=== PATIENT | male | born 1960 | race Caucasian/White ===

== ENCOUNTER → 2017-05-09 | Emergency (ER) | payer OTHER ==
[2017-05-09 12:46] VITALS: BP 150/88; PULSE 96; TEMP 98.1; BMI 25.2
== END | disposition left against medical advice (07) ==
LOC: JER 12:42
DX: Z53.21 Procedure and treatment not carried out due to patient leaving prior to being seen by health care provider (principal)
CPT/HCPCS: 99281-25

== ENCOUNTER 2019-03-03 09:16 | Inpatient (IN) | payer OTHER ==
--- NOTE | 2019-03-03 09:35 | HP ---
CIWA Score Nausea/Vomitin-Mild Nausea/No Vomiting Muscle Tremors: 6 Anxiety: 1-Mildly Anxious Agitation: 1-Slight > Activity Paroxysmal Sweats: 4-Forehead w/Sweat Beads Orientation: 0-Oriented Tacttile Disturbances: 1-Very Mild Itch/Numbness Auditory Disturbances: 0-None Visual Disturbances: 0-None Headache: 0-None Present CIWA-Ar Total Score: 14 - Admission Criteria OASAS Guidelines: Admission for Medically Managed Detox: Requires at least one of the followin. CIWA greater than 12 2. Seizures within the past 24 hours 3. Delirium tremens within the past 24 hours 4. Hallucinations within the past 24 hours 5. Acute intervention needed for co occurring medical disorder 6. Acute intervention needed for co occurring psychiatric disorder 7. Severe withdrawal that cannot be handled at a lower level of care (continued vomiting, continued diarrhea, abnormal vital signs) requiring intravenous medication and/or fluids 8. Admitting History and Physical - Admission Chief Complaint: "I am trying to detox and get control of my life again. I tried on my own and couldn't do it." History of Present Illness: 58 year old male with alcohol dependence with withdrawals and cocaine use disorder. He remained abstinent for many years but relapsed 1.5 years ago after divorce. He is drinking 12 beers daily and sometimes vodka. Last drank yesterday beers only. He admits to blackouts and last one was 6 months ago. 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 He has co-morbid disorders including HTN, HLD, and COPD. He smokes 7-8 ciggarettes per day, smoked today. Psurg: Spinal surgery cervical multiple screens from accident Shx: Denies other substances of abuse Patient is domiciled in [place], living with mother. Mother is supportive and wants him to detox and become abstinent. 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 75% occlusion left side) Cardiovascular: Yes: Hyperlipdemia Pulmonary: Yes: COPD - Smoking History Smoking history: Current every day smoker Have you smoked in the past 12 months: Yes Aproximately how many cigarettes per day: 10 - Alcohol/Substance Use Hx Alcohol Use: No Admission ROS BHS - HPI Allergies/Adverse Reactions: Allergies Allergy/AdvReac Type Severity Reaction Status Date / Time Penicillins Allergy Verified 03/03/19 09:35 Exam Limitations: No Limitations - Ebola screening Have you traveled outside of the country in the last 21 days: No (N) Have you had contact with anyone from an Ebola affected area: No Have you been sick,other than usual withdrawal symptoms: No Do you have a fever: No - Review of Systems Constitutional: Chills, Diaphoresis EENT: reports: No Symptoms Reported Respiratory: reports: SOB with Exertion Cardiac: reports: No Symptoms Reported GI: reports: No Symptoms Reported : reports: No Symptoms Reported Musculoskeletal: reports: No Symptoms Reported Integumentary: reports: No Symptoms Reported Neuro: reports: No Symptoms reported Endocrine: reports: No Symptoms Reported Hematology: reports: No Symptoms Reported Psychiatric: reports: Judgement Intact, Mood/Affect Appropiate, Orientated x3 Other Systems: Reviewed and Negative Patient History - Patient Medical History Hx Chronic Obstructive Pulmonary Disease (COPD): Yes Hx Hypertension: Yes - Patient Surgical History Past Surgical History: Yes Hx Neurologic Surgery: Yes Hx Cataract Extraction: No Hx Cardiac Surgery: No Hx Lung Surgery: No Hx Breast Surgery: No Hx Breast Biopsy: No Hx Abdominal Surgery: No Hx Appendectomy: No Hx Cholecystectomy: No Hx Genitourinary Surgery: No Hx Section: No Hx Orthopedic Surgery: No Hx Hysterectomy: No Other Surgical History: cervical spinal surgeries with multiple screws Anesthesia Reaction: No - PPD History Previous Implant?: No Documented Results: Positive w/o proof Implanted On Prior [facility] Admission?: No Date: 02/21/95 (inh and rifam 20 years ago) Results: + INH and Rifam - Smoking Cessation Smoking history: Current every day smoker Have you smoked in the past 12 months: Yes Aproximately how many cigarettes per day: 10 Hx Chewing Tobacco Use: No Initiated information on smoking cessation: Yes 'Breaking Loose' booklet given: 03/03/19 - Substances abused Alcohol Substance route: Oral Frequency: Daily Amount used: 20 cans of beers Age of first use: 14 Date of last use: 03/02/19 Crack Substance route: Smoking Frequency: 1-3 times last 30 days Amount used: $10 Age of first use: 55 Date of last use: 02/24/19 Admission Physical Exam BHS - Physical General Appearance: Yes: Mild Distress, Tremorous, Sweating, Anxious HEENTM: Yes: EOMI, Hearing grossly Normal, Normal ENT Inspection, Normocephalic , Normal Voice, MARI, Pharynx Normal, Tm's normal Respiratory: Yes: Chest Non-Tender, Lungs Clear, Normal Breath Sounds, No Respiratory Distress, No Accessory Muscle Use Neck: Yes: No masses,lesions,Nodules, Supple, Trachea in good position Breast: Yes: Within Normal Limits Cardiology: Yes: Regular Rhythm, Regular Rate, S1, S2 Abdominal: Yes: Normal Bowel Sounds, Non Tender, Flat Genitourinary: Yes: Within Normal Limits Back: Yes: Normal Inspection Musculoskeletal: Yes: full range of Motion, Gait Steady, Pelvis Stable, Other ( scar cervical area) Extremities: Yes: Normal Capillary Refill, Normal Inspection, Normal Range of Motion, Non-Tender Neurological: Yes: head of ict II-XII NML intact, Fully Oriented, Alert, Motor Strength 5/5, Normal Mood/Affect, Normal Response Integumentary: Yes: Normal Color, Warm Lymphatic: Yes: Within Normal Limits - Diagnostic (1) Status post cervical spinal fusion Current Visit: Yes Status: Acute (2) Alcohol dependence with withdrawal Current Visit: Yes Status: Acute (3) Cocaine use disorder Current Visit: Yes Status: Acute (4) Hypertension Current Visit: Yes Status: Acute (5) Chronic obstructive airway disease Current Visit: Yes Status: Acute (6) Hyperlipidemia Current Visit: Yes Status: Acute (7) Carotid artery stenosis Current Visit: Yes Status: Acute Screened but not Admitted - Documentation of Visit Screened but not Admitted: No Breathalyzer - Breathalyzer Breathalyzer: 0 (drank yesterday afternoon) Inpatient Rehab Admission - Rehab Decision to Admit Inpatient rehab admission?: No
[2019-03-03 10:02] VITALS: BMI 25.2
[2019-03-03] MEDS ORDERED: MAG HYDROX/AL HYDROX/SIMETH 30 ML UNIT-DOSE CUP PO PRN (10:25)
[2019-03-03] MEDS ORDERED: BISMUTH SUBSALICYLATE 262 MG/15 ML BTL PO PRN (10:25)
[2019-03-03] MEDS ORDERED: IBUPROFEN 400 MG TABLET (FP) PO PRN (10:25)
[2019-03-03] MEDS ORDERED: MENTHOL/PHENOL 1 EACH UD MM PRN (10:25)
[2019-03-03] MEDS ORDERED: METHOCARBAMOL 500 MG TABLET PO PRN (10:25)
[2019-03-03] MEDS ORDERED: chlordiazePOXIDE HCL 25 MG CAPSULE PO PRN (10:25)
[2019-03-03] MEDS ORDERED: MAGNESIUM HYDROX 2400MG/30ML ORAL SUSPENSION 30 ML CUP PO PRN (10:25)
[2019-03-03] MEDS ORDERED: MELATONIN 5 MG TABLETS PO PRN (10:25)
[2019-03-03] MEDS ORDERED: ACETAMINOPHEN 325 MG TABLET (FP) PO PRN ×2 (10:25)
[2019-03-03] MEDS ORDERED: hydrOXYzine PAMOATE 25 MG CAPSULE (FP) PO PRN (10:25)
[2019-03-03] MEDS ORDERED: MAGNESIUM CITRATE 300 ML BOTTLE PO PRN (10:25)
[2019-03-03] MEDS ORDERED: ALBUTEROL SO4 HFA INHALER IH PRN (10:26)
[2019-03-03] MEDS ORDERED: ERGOCALCIFEROL (VIT D2) 50,000 UNIT (1.25 MG) CAPSULE PO SCH (10:30)
[2019-03-03] MEDS: chlordiazePOXIDE HCL 25 MG CAPSULE PO SCH ×3 (11:01→22:10)
[2019-03-03] MEDS ORDERED: THIAMINE HCL 100 MG TABLET (FP) PO SCH (22:00)
[2019-03-03] MEDS ORDERED: PATIENT'S OWN MEDICATION (NON-FORMULARY) (Icosapent Ethyl [Vascepa] 2 GM) PO SCH (22:00)
[2019-03-04] MEDS: chlordiazePOXIDE HCL 25 MG CAPSULE PO SCH (05:12)
[2019-03-04 09:27] VITALS: BP 135/79; PULSE 69; TEMP 97.3
[2019-03-04 09:27] LABS: HEMATOCRIT 45.3 % (35.4-49); HEMOGLOBIN 14.8 GM/dL (11.7-16.9); MCH 31.2 pg (25.7-33.7); MCHC 32.8 g/dl (32.0-35.9); MEAN CELL VOLUME 95.2 fl (80-96); MEAN PLT VOLUME 8.1 fl (7.5-11.1); PLATELET COUNT 276 K/MM3 (134-434); RBC 4.76 M/mm3 (4.00-5.60); RDW 14.4 % (11.9-15.9); WHITE BLOOD COUNT 6.6 K/mm3 (4.0-10.0)
--- NOTE | 2019-03-04 09:41 | PN ---
S CIWA - CIWA Score Nausea/Vomitin-No Nausea/No Vomiting Muscle Tremors: 3 Anxiety: 3 Agitation: 3 Paroxysmal Sweats: 3 Orientation: 0-Oriented Tacttile Disturbances: 0-None Auditory Disturbances: 0-None Visual Disturbances: 0-None Headache: 0-None Present CIWA-Ar Total Score: 12 BHS Progress Note (SOAP) Subjective: sweats shakes interrupted sleep body aches irritable Objective: 03/04/19 09:40 Vital Signs Temperature 97.3 F L 03/04/19 09:26 Pulse Rate 69 03/04/19 09:26 Respiratory Rate 18 03/04/19 09:26 Blood Pressure 135/79 03/04/19 09:26 O2 Sat by Pulse Oximetry (%) Laboratory Tests 03/04/19 07:45 WBC 6.6 RBC 4.76 Hgb 14.8 Hct 45.3 MCV 95.2 MCH 31.2 MCHC 32.8 RDW 14.4 Plt Count 276 D MPV 8.1 D rest of labs pending aaox3 ambulating no acute distress Assessment: 03/04/19 09:41 withdrawals Plan: continue detox increase fluids
[2019-03-04] MEDS ORDERED: ATORVASTATIN CA 20 MG TABLET (FP) PO SCH (10:00)
[2019-03-04] MEDS ORDERED: ASPIRIN COATED 81 MG TABLET.EC PO SCH (10:00)
[2019-03-04] MEDS ORDERED: PRENATAL VITAMINS W/ FOLIC ACID TABLET (FP) PO SCH (10:00)
[2019-03-04] MEDS ORDERED: UMECLIDINIUM/VILANTEROL (ANORO) 62.5/25 MCG INHALER IH SCH (10:00)
[2019-03-04] MEDS ORDERED: LISINOPRIL 10 MG TABLET (FP) PO SCH (10:00)
[2019-03-04] MEDS ORDERED: amLODIPine BESYLATE 5 MG TABLET (FP) PO SCH (10:00)
[2019-03-04] MEDS ORDERED: NICOTINE 7 MG/24 HOURS TOPICAL PATCH TD SCH (10:00)
[2019-03-04 10:05] LABS: ALBUMIN 3.3 g/dl (3.4-5.0); BILIRUBIN,TOTAL 0.1 mg/dL (0.2-1); BLOOD UREA NITROGEN 15.4 mg/dL (7-18); CALCIUM 9.4 mg/dL (8.5-10.1); CREATININE 0.8 mg/dL (0.55-1.3); POTASSIUM 4.5 mmol/L (3.5-5.1); TOT PROT 6.4 g/dl (6.4-8.2)
[2019-03-05] MEDS ORDERED: chlordiazePOXIDE HCL 25 MG CAPSULE PO SCH (05:00)
[2019-03-06] MEDS ORDERED: chlordiazePOXIDE HCL 10 MG CAPSULE PO PRN
[2019-03-06] MEDS ORDERED: chlordiazePOXIDE HCL 10 MG CAPSULE PO SCH (05:00)
[2019-03-07] MEDS ORDERED: chlordiazePOXIDE HCL 10 MG CAPSULE PO SCH (05:00)
[2019-03-08] MEDS ORDERED: chlordiazePOXIDE HCL 10 MG CAPSULE PO ONE (05:00)
== END 2019-03-04 11:14 | disposition left against medical advice (07) | DRG 770 ==
LOC: YASAS 09:16 → Y6N 10:38
PROVIDERS: ADMIT Allergy & Immunology; ATTEND Allergy & Immunology
PROC: HZ2ZZZZ Detoxification Services for Substance Abuse Treatment (ICD-10-PCS; principal; 2019-03-03)
DX: F10.230 Alcohol dependence with withdrawal, uncomplicated (principal); F14.20 Cocaine dependence, uncomplicated; F17.210 Nicotine dependence, cigarettes, uncomplicated; I10 Essential (primary) hypertension; E78.5 Hyperlipidemia, unspecified; J44.9 Chronic obstructive pulmonary disease, unspecified; I65.22 Occlusion and stenosis of left carotid artery; Z98.1 Arthrodesis status; Z88.0 Allergy status to penicillin
CPT/HCPCS: 36415; 80053; 85027; 86593

== ENCOUNTER 2019-10-05 19:02 | Observation (INO) | payer OTHER ==
[2019-10-05 19:27] VITALS: BMI 25.0
[2019-10-05] MEDS ORDERED: ACETAMINOPHEN 1000 MG/100 ML VIAL (NON FORMULARY) IVPB ONE (19:53)
[2019-10-05] MEDS ORDERED: ACETAMINOPHEN INJECTION 100 ML IVPB ONE (19:56)
--- NOTE | 2019-10-05 19:57 | PDOC ---
Attending Attestation - Resident Resident Name: Donita Vieyra - ED Attending Attestation I have performed the following: I have examined & evaluated the patient, The case was reviewed & discussed with the resident, I agree w/resident's findings & plan - HPI HPI: 10/05/19 22:43 Pt comes with CP after using cocaine with a friend. Pt has a hx of cocaine use and alcohol daily abuse. Pt has a hx of HTN and follow with Dr. Go. Pt has MSCP Breathing normally in the ER Afebrile Pt is hungry and requesting food. - Physicial Exam PE: 10/05/19 22:45 Agree with resident exam normal HEENT; normal heart and lungs no abd pain no flank pain no edema of legs - Medical Decision Making 10/05/19 22:45 Pt is tachycardic. He will be treated with amlodidpine dose. Pt hydrated with a banana bag. 10/05/19 22:46 EKG normal CXR normal Exam normal Pt will be admitted for serial cardiac enzymes for ACS r/o given all his risk factors. 10/06/19 02:03 Patient Name: RM BAKER THIS IS A PRELIMINARY REPORT DATE OF SERVICE: 2019-10-05 23:58:15 IMAGES: 39 EXAM: Bilateral lower extremity duplex venous ultrasound HISTORY: Chest pain rule out DVT COMPARISON: None. FINDINGS: Negative for right or left lower extremity deep venous thrombosis. Heart Score/ECG Review - History History: Moderately suspicious - Electrocardiogram EKG: Normal - Age Age: 45-65 - Risk Factors Risk Factors Heart Score: Yes Hx Hypertension, Yes Smoking History Based on the list above the patient has:: 1-2 risk factors - Troponin Troponin: </= normal limit - Score Heart Score - Total: 3 - ECG Intrepretation Rhythm: Regular Rhythm - [place]: Normal - P and LA Prominent R with upright T in V1 (true posterior IN): No Delta Wave(s) Present: No WPW: No - QRS Poor R Wave Progression: No Q Wave Present: No - ST and T Early Repolarization: No Non Specific ST-T Wave changes: No Flattened T Waves: No Prolonged Q-T Interval: No - ECG Impressions Normal ECG: Yes Non-specific ST Elevation: No Ischemic Changes: No Bradycardia: No Torsades lydia Pointes: No WPW: No Discharge - Discharge Information Problems reviewed: Yes Clinical Impression/Diagnosis: Chest pain Qualifiers: Chest pain type: unspecified Qualified Code(s): R07.9 - Chest pain, unspecified Alcohol dependence with withdrawal Qualifiers: Complication of substance-induced condition: uncomplicated Qualified Code(s): F10.230 - Alcohol dependence with withdrawal, uncomplicated Condition: Stable Disposition: AGAINST MEDICAL ADVICE - Follow up/Referral - Patient Discharge Instructions - Post Discharge Activity
[2019-10-05] MEDS ORDERED: SODIUM CHLORIDE 0.9% 500 ML INFUS.BAG IV ONE (20:31)
--- NOTE | 2019-10-05 20:35 | PDOC ---
History of Present Illness - General Chief Complaint: Chest Pain Stated Complaint: CHEST PAIN Time Seen by Provider: 10/05/19 19:32 - History of Present Illness Initial Comments: Pt is 59yo M with PMH HTN, HLD, COPD, polysubstance abuse, hx of RLE stents for ?clots on ASA and plavix, who presents with chest pain after using crack cocaine. Pt states that he last used at 3pm, felt chest pain that was sharp and 9/10. Pain radiates to upper back and left arm. Described as nonexertional, nonpositional. Pain is constant, currently 6/10. Denies any aggravating/relieving factors. Did not take any medication for pain. Reports associated n/v. Denies diaphoresis. Did not take his BP or ASA/Plavix today. Reports that he used 1 hit of crack cocaine, 7-8 beers, and smoked cigarettes today. States that he is scheduled for a procedure for clot in his left leg this week. PCP: [facility] PMH: see above PSHx: see chart Meds: see chart All: penicillin (swelling) Review of Systems CONSTITUTIONAL:denies fever, chills, diaphoresis, generalized weakness, malaise, loss of appetite HEENT:denies rhinorrhea, nasal congestion, sore throat CARDIOVASCULAR:reports chest pain, palpitations, lightheadedness, peripheral edema RESPIRATORY:reports cough, shortness of breath GASTROINTESTINAL: reports nausea, vomiting; denies abdominal pain, diarrhea, constipation, melena, hematochezia GENITOURINARY:denies dysuria, frequency, urgency MUSCULOSKELETAL:denies myalgia, arthralgia HEMATOLOGIC/IMMUNOLOGIC:denies easy bleeding, easy bruising ENDOCRINE: denies unexplained weight gain, unexplained weight loss NEUROLOGIC: reports dizziness;denies headache, loss of consciousness, focal weakness or paresthesias, unsteady gait, mental status changes, bladder or bowel incontinence SKIN:reports rash on L hand Physical Exam General: awake, alert, fully oriented, in no acute distress, well developed, well nourished Head: normocephalic, atraumatic Eyes: PERRL, EOMI, anicteric sclera, conjunctiva clear ENT: Auricles normal inspection, hearing grossly normal, Moist mucous membranes Neck: supple, normal ROM Lung: equal breath sounds b/l, CTA b/l, no crackles, wheezes; no distress, speaks full sentences Heart: RRR, normal S1, S2, no murmurs appreciated Abdomen: soft, non tender, normoactive bowel sounds, no guarding, rebound, masses Extremities: no edema, no erythema or tenderness, DP/PT pulses 2+ and symmetric Neuro: CN2-12 grossly intact, moves all extremities, normal speech, sensation intact Skin: warm, dry, erythematous round lesions on L hand MDM Pt is 59yo M with PMH HTN, HLD, hx of stents on ASA and plavix, who presents with chest pain after using crack cocaine. DDx including but not limited to: ACS, coronary vasospasm, pneumonitis, PE Workup: labs, cxr, ekg TX: pain control EKG: sinus tachycardia, HR 104bpm, WI 148ms, QRS 86ms, QTc 441ms, unchanged from previous (09/2019) CXR - no acute lung disease, no pneumothorax or pleural effusion, midline airway, appropriate vascular markings, no blunting of costophrenic angle, no cardiomegaly, as read by ED staff Heart score 4 Labs: no leukocytosis, no anemia, electrolytes WNL, troponin WNL Requested transfer to detox Pt states his CP is improved, discussed admission for observation, agreeable to plan Pt appears tremulous, given recent ETOH use, concerned for withdrawal. 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 Disposition: Admit tele obs Past History - Medical History Allergies/Adverse Reactions: Allergies Allergy/AdvReac Type Severity Reaction Status Date / Time Penicillins Allergy Verified 10/05/19 19:24 Home Medications: Ambulatory Orders Amlodipine Besylate/Benazepril [Amlodipine-Benazepril 5-10 mg] 1 each PO DAILY 03/03/19 Aspirin Coated [Ecotrin -] 81 mg PO DAILY 03/03/19 Atorvastatin Calcium [Lipitor] 20 mg PO DAILY 03/03/19 Ergocalciferol (Vitamin D2) [Vitamin D2] 50,000 unit PO WEEKLY 03/03/19 Thiamine Mononitrate [Vitamin B-1] 100 mg PO DAILY 03/03/19 Umeclidinium Brm/Vilanterol Tr [Anoro Ellipta 62.5-25 Mcg INH] 1 each IH DAILY 03/03/19 Clopidogrel Bisulfate [Plavix] 75 mg PO DAILY 09/13/19 Cyanocobalamin (Vitamin B-12) [Vitamin B-12] 1,000 mcg PO DAILY 09/13/19 Folic Acid - 1 mg PO DAILY 09/13/19 Asthma: No Cancer: No Cardiac Disorders: No CVA: No COPD: Yes CHF: No Dementia: No Diabetes: No GI Disorders: No Disorders: No HTN: Yes (on med) Hypercholesterolemia: Yes (on med) Kidney Stones: No Liver Disease: No Psychiatric Problems: Yes (anxiety) Seizures: No Thyroid Disease: No - Surgical History Abdominal Surgery: No Appendectomy: No Cardiac Surgery: No Cholecystectomy: No Lung Surgery: No Neurologic Surgery: Yes (in 2016 in [facility]) Orthopedic Surgery: No - Reproductive History Testicular Surgery: No - Immunization History Immunization Up to Date: Yes - Psycho-Social/Smoking History Smoking Status: Yes Smoking History: Current every day smoker Have you smoked in the past 12 months: Yes Number of Cigarettes Smoked Daily: 10 Information on smoking cessation initiated: No 'Breaking Loose' booklet given: 09/13/19 - Substance Abuse Hx (Audit-C & DAST Scrn) How often the patient has a drink containing alcohol: Monthly or less Number of drinks the patient has on a typical day: 3 or 4 How often the patient has six or more drinks on one occasion: Less than monthly Score: In Men: 4 or > Positive; In Women: 3 or > Positive: 3 Screen Result (Pos requires Nsg. Audit-10AR): Negative In the last yr the pt used illegal drug/Rx for NonMed reason: Yes Score: Yes response is considered Positive: 1 Screen Result (Positive result requires Nsg. DAST-10): Positive *Physical Exam - Vital Signs Last Vital Signs Temp Pulse Resp BP Pulse Ox 98.1 F 106 H 20 143/86 98 10/05/19 19:22 10/05/19 19:22 10/05/19 19:22 10/05/19 19:22 10/05/19 19:22 Heart Score/ECG Review - History History: Moderately suspicious - Electrocardiogram EKG: Normal - Age Age: 45-65 - Risk Factors Risk Factors Heart Score: Yes Hx Hypercholesterolemia, Yes Hx Hypertension, Yes Smoking History Based on the list above the patient has:: >/=3 risk factors or Hx atherosclerotic disease - Troponin Troponin: </= normal limit - Score Heart Score - Total: 4 ED Treatment Course - LABORATORY CBC & Chemistry Diagram: 10/07/19 08:37 10/07/19 08:37 Discharge - Discharge Information Problems reviewed: Yes Clinical Impression/Diagnosis: Chest pain Qualifiers: Chest pain type: unspecified Qualified Code(s): R07.9 - Chest pain, unspecified Alcohol dependence with withdrawal Qualifiers: Complication of substance-induced condition: uncomplicated Qualified Code(s): F10.230 - Alcohol dependence with withdrawal, uncomplicated Condition: Stable Disposition: AGAINST MEDICAL ADVICE - Admission Yes - Follow up/Referral - Patient Discharge Instructions - Post Discharge Activity
[2019-10-05 21:13] LABS: BASO % 0.4 % (0-2.0); EOS % 0.5 % (0-4.5); HEMATOCRIT 44.6 % (35.4-49); HEMOGLOBIN 14.9 GM/dL (11.7-16.9); LYMPH % 24.8 % (8-40); MCH 32.1 pg (25.7-33.7); MCHC 33.5 g/dl (32.0-35.9); MEAN PLT VOLUME 7.2 fl (7.5-11.1); MONO % 6.8 % (3.8-10.2); NEUT % 67.5 % (42.8-82.8); PLATELET COUNT 302 K/MM3 (134-434); RBC 4.65 M/mm3 (4.00-5.60); RDW 14.4 % (11.9-15.9); WHITE BLOOD COUNT 8.5 K/mm3 (4.0-10.0)
[2019-10-05 21:38] LABS: INR 0.87 (0.83-1.09); PROTHROMBIN TIME (PATIENT) 10.3 SEC (9.7-13.0)
[2019-10-05 21:40] LABS: ACTIVATED PTT 29.1 SECONDS (25.2-36.5)
[2019-10-05 21:41] LABS: ALK PHOS 92 U/L (45-117); ANION GAP 11 MMOL/L (8-16); BILIRUBIN,TOTAL 0.6 mg/dL (0.2-1); BLOOD UREA NITROGEN 13.1 mg/dL (7-18); CALCIUM 8.9 mg/dL (8.5-10.1); CHLORIDE 108 mmol/L (98-107); CO2 21 mmol/L (21-32); CREATININE 0.8 mg/dL (0.55-1.3); GLUCOSE,RANDOM 81 mg/dL (74-106); MAGNESIUM 2.6 mg/dL (1.8-2.4); N-TERMINAL BNP 46.3 pg/ml (5-125); POTASSIUM 4.5 mmol/L (3.5-5.1); SGOT/AST 59 U/L (15-37); SGPT/ALT 70 U/L (13-61); SODIUM 139 mmol/L (136-145); TOT PROT 7.6 g/dl (6.4-8.2)
[2019-10-05] MEDS ORDERED: amLODIPine BESYLATE 5 MG TABLET (FP) PO ONE (21:58)
[2019-10-05] MEDS ORDERED: FOLIC ACID INJECTION - 1 MG, THIAMINE HCL 100 MG, MULTIVIT INJECTION ADULT 10 ML in SOD... IVPB ONE (21:58)
[2019-10-05] MEDS ORDERED: chlordiazePOXIDE HCL 25 MG CAPSULE PO ONE ×2 (22:18→22:47)
[2019-10-05] MEDS ORDERED: ASPIRIN 81 MG CHEWABLE TABLETS PO ONE (22:39)
--- NOTE | 2019-10-05 23:01 | HP ---
CHIEF COMPLAINT:here with chest pain after using crack/cocaine and alcohol today PCP:Dr. Olvera HISTORY OF PRESENT ILLNESS: 59 year old male with a past medical history of hypertension, hyperlipidemia, COPD, polysubstance abuse(recently at [facility] for detox and was discharged on 09/15/2019), hx of RLE stents for ?clots on aspirin and plavix who presents with chest pain after using crack, cocaine and alcohol(last drink at 6pm) with a lady friend. Patient states that he last used drugs at 3pm, felt chest pain that was described as sharp and rating 9/10 in intensity. He reports pain radiates to his upper back and left arm and was described as nonexertional and nonpositional. He reports chest pain is constant, currently reporting as mild. He denies any aggravating/relieving factors. He reports associated nausea and vomiting and denies diaphoresis. He reported he did not take his blood pressure medications, asa or plavix today. He reported that he used 1 hit of crack/cocaine, had 8 beers, 2 shots of liquor and smoked cigarettes today. He is requesting that he wants to go to detox in [facility] on discharge. He reported that he is scheduled for a procedure for clot in his left leg this week. He denies fever, shortness of breath, leg pain or swelling. ER course notable for: 1st normal troponin, ast 59 alt 70. Blood Pressure 143/86, O2 sat 98%, RR 16 Pulse 106. EKG: sinus tachycardia, HR 104bpm, GA 148ms, QRS 86ms, QTc 441ms, unchanged from previous (09/2019). CXR - no acute lung disease, no pneumothorax or pleural effusion, midline airway, appropriate vascular markings, no blunting of costophrenic angle, no cardiomegaly, as per ER note. Clinically appeared tremulous- received librium 25mg once and IV folic acid. Recent Travel: no PAST MEDICAL HISTORY: hypertension hyperlipidemia COPD polysubstance abuse PAST SURGICAL HISTORY: hx of RLE stents FAMILY HISTORY: Mother had a pacemaker and stent. Father- , reports unknown health history. Social History: Smoking:yes, started age 14, 1/2 ppd Alcohol:yes, drinks at least a six pack of beer daily Drugs: yes, uses crack and cocaine, last used today prior to coming to ED, was recently in detox at [facility] and discharged on 09/15/2019 Allergies Penicillins Allergy (Verified 10/05/19 19:24) HOME MEDICATIONS: Home Medications Medication Instructions Recorded Zolpidem Tartrate [Ambien] 10 mg PO HS PRN 06/25/14 Oxycodone HCl/Acetaminophen 1 - 2 tab PO Q6H #20 tablet 06/26/14 [Percocet 10-325 mg Tablet] Amlodipine Besylate/Benazepril 1 each PO DAILY 03/03/19 [Amlodipine-Benazepril 5-10 mg] Aspirin Coated [Ecotrin -] 81 mg PO DAILY 03/03/19 Atorvastatin Calcium [Lipitor] 20 mg PO DAILY 03/03/19 Ergocalciferol (Vitamin D2) 50,000 unit PO WEEKLY 03/03/19 [Vitamin D2] Thiamine Mononitrate [Vitamin B-1] 100 mg PO DAILY 03/03/19 Umeclidinium Brm/Vilanterol Tr 1 each IH DAILY 03/03/19 [Anoro Ellipta 62.5-25 Mcg INH] Clopidogrel Bisulfate [Plavix] 75 mg PO DAILY 09/13/19 Cyanocobalamin (Vitamin B-12) 1,000 mcg PO DAILY 09/13/19 [Vitamin B-12] Folic Acid - 1 mg PO DAILY 09/13/19 REVIEW OF SYSTEMS CONSTITUTIONAL: Absent: fever, chills, diaphoresis, generalized weakness, malaise, loss of appetite, weight change HEENT: Absent: rhinorrhea, nasal congestion, throat pain, throat swelling, difficulty swallowing, mouth swelling, ear pain, eye pain, visual changes CARDIOVASCULAR: Absent: chest pain with radiation to back and left arm, syncope, palpitations, irregular heart rate, lightheadedness, peripheral edema RESPIRATORY: Absent: cough, shortness of breath, dyspnea with exertion, orthopnea, wheezing, stridor, hemoptysis GASTROINTESTINAL: Absent: abdominal pain, abdominal distension, nausea, vomiting, diarrhea, constipation, melena, hematochezia GENITOURINARY: Absent: dysuria, frequency, urgency, hesitancy, hematuria, flank pain, genital pain MUSCULOSKELETAL: Absent: myalgia, arthralgia, joint swelling, back pain, neck pain SKIN: Absent: rash, itching, pallor HEMATOLOGIC/IMMUNOLOGIC: Absent: easy bleeding, easy bruising, lymphadenopathy, frequent infections ENDOCRINE: Absent: unexplained weight gain, unexplained weight loss, heat intolerance, cold intolerance NEUROLOGIC: Absent: headache, focal weakness or paresthesias, dizziness, unsteady gait, seizure, mental status changes, bladder or bowel incontinence PSYCHIATRIC: Absent: anxiety, depression, suicidal or homicidal ideation, hallucinations. PHYSICAL EXAMINATION Vital Signs - 24 hr 10/05/19 19:22 Temperature 98.1 F Pulse Rate 106 H Respiratory 20 Rate Blood Pressure 143/86 O2 Sat by Pulse 98 Oximetry (%) General no acute distress Vital signs reviewed blood pressure and heart rate noted Neuro no focal deficits Neck no JVD Lungs CTA nonlabored breathing effort no wheezing no rales no use of accessory muscles Heart s1s2 rate regular and tachycardic Abdomen soft nontender nondistended Extremities warm to touch no pitting edema no cyanosis Skin nail beds and lips pink Mood calm and cooperative Laboratory Results - last 24 hr 10/05/19 10/05/19 10/05/19 20:40 20:40 20:46 WBC 8.5 RBC 4.65 Hgb 14.9 Hct 44.6 MCV 96.0 MCH 32.1 MCHC 33.5 RDW 14.4 Plt Count 302 MPV 7.2 L Absolute Neuts (auto) 5.8 Neutrophils % 67.5 D Lymphocytes % 24.8 D Monocytes % 6.8 Eosinophils % 0.5 Basophils % 0.4 Nucleated RBC % 0 PT with INR 10.30 INR 0.87 PTT (Actin FS) 29.1 Sodium 139 Potassium 4.5 Chloride 108 H Carbon Dioxide 21 Anion Gap 11 BUN 13.1 Creatinine 0.8 Est GFR (CKD-EPI)AfAm 113.33 Est GFR (CKD-EPI)NonAf 97.78 Random Glucose 81 Calcium 8.9 Magnesium 2.6 H Total Bilirubin 0.6 AST 59 H ALT 70 H Alkaline Phosphatase 92 Creatine Kinase 265 Creatine Kinase Index 2.4 CK-MB (CK-2) 6.4 H Troponin I < 0.02 B-Natriuretic Peptide 46.3 Total Protein 7.6 Albumin 4.0 ASSESSMENT/PLAN: In summary this is a 59 year old male with a past medical history of hypertension, hyperlipidemia, COPD, polysubstance abuse(recently at [facility] for detox and was discharged on 09/15/2019), hx of RLE stents for ?clots on aspirin and plavix and as reported awaiting a procedure for ?left leg clot this week who presents with nonexertional left sided chest pain after using crack, cocaine and alcohol. He was found to have a normal CXR. EKG had no acute ischemic changes. His first troponin is normal. He continues to report mild chest discomfort and appears tremulous clinically. He is being admitted to observation/telemetry to rule out ACS and monitor for DT's/withdrawal symptoms. #1 Chest Pain in the setting of Cocaine/Crack Use /Rule Out ACS remains symptomatic with mild chest discomfort workup- troponin normal, EKG with no acute ischemic changes, CXR no acute findings, SBP 140's and tachycardic, no evidence of hypoxia received asa 162 mg continue to trend troponins monitor on telemetry for ventricular ectopy will check D-Dimer c/w asa, plavix and statin c/w amlodipine and lisinopril for bp control Cardiology- Dr. Gann consulted #2 Polysubstance Abuse monitor for DT's/withdrawal symptoms/seizures librium 25mg once given c/w librium taper protocol (librium 25mg po q6hr for 24 hour, then librium 10 mg q 6hr for 24 hour, then librium 10 mg q 12 hr, then librium 10 mg in am) Will need to consult social insurance adviser in am - patient requesting detox upon d/c c/w folic acid and vitamin b12 #3 Hypertension SBP 140's c/w amlodipine and lisinopril #4 Hyperlipidemia c/w statin therapy LFT's -ast 59, alt 70 likely mildly elevated in the setting of ETOH abuse continue to monitor closely with statin therapy #5 COPD no acute exacerbation c/w inhaler #6 Hx of RLE stent and ?left leg clot clinically no swelling or pain c/w asa and plavix will check venous US of BLE and D-Dimer #7 Rule Out COVID follow up on COVID test maintain oxygen saturation >90% maintain strict isolation for droplet and contact isolation DVT Prophylaxis lovenox 40 mg daily FEN no IVF indicated BMP daily, replete electrolytes as needed low sodium heart healthy diet Family Medical History Family History: As Documented Visit type - Emergency Visit Emergency Visit: Yes Care time: The patient presented to the Emergency Department on the above date and was hospitalized for further evaluation of their emergent condition. - New Patient This patient is new to me today: Yes Date on this admission: 10/06/19 - Critical Care Critical Care patient: No
[2019-10-05] MEDS ORDERED: ASPIRIN 81 MG CHEWABLE TABLETS ONE (23:11)
[2019-10-05] MEDS ORDERED: chlordiazePOXIDE HCL 25 MG CAPSULE ONE (23:11)
[2019-10-05] MEDS ORDERED: amLODIPine BESYLATE 5 MG TABLET (FP) ONE (23:12)
[2019-10-06] MEDS ORDERED: chlordiazePOXIDE 5 MG CAPSULE PO SCH ×2
[2019-10-06] MEDS ORDERED: chlordiazePOXIDE HCL 25 MG CAPSULE PO SCH (05:00)
[2019-10-06] MEDS ORDERED: chlordiazePOXIDE HCL 25 MG CAPSULE ONE ×2 (05:16→11:15)
[2019-10-06] MEDS: chlordiazePOXIDE HCL 25 MG CAPSULE PO SCH ×4 (05:18→22:32)
[2019-10-06 07:18] LABS: HEMATOCRIT 39.1 % (35.4-49); HEMOGLOBIN 13.2 GM/dL (11.7-16.9); MCH 32.2 pg (25.7-33.7); MCHC 33.8 g/dl (32.0-35.9); MEAN CELL VOLUME 95.3 fl (80-96); MEAN PLT VOLUME 7.4 fl (7.5-11.1); PLATELET COUNT 264 K/MM3 (134-434); RDW 14.2 % (11.9-15.9); WHITE BLOOD COUNT 6.7 K/mm3 (4.0-10.0)
[2019-10-06 07:59] LABS: ANION GAP 8 MMOL/L (8-16); CALCIUM 8.2 mg/dL (8.5-10.1); CHLORIDE 106 mmol/L (98-107); CO2 24 mmol/L (21-32); CREATININE 0.7 mg/dL (0.55-1.3); GLUCOSE,RANDOM 95 mg/dL (74-106); POTASSIUM 3.9 mmol/L (3.5-5.1); SODIUM 137 mmol/L (136-145)
[2019-10-06] MEDS ORDERED: ATORVASTATIN CA 20 MG TABLET (FP) PO SCH ×2 (10:00→10:35)
[2019-10-06] MEDS ORDERED: PATIENT'S OWN MEDICATION (NON-FORMULARY) (Amlodipine Besylate/Benazepril [Amlodipine-Benaz PO SCH (10:00)
[2019-10-06] MEDS ORDERED: ASPIRIN COATED 81 MG TABLET.EC ONE (10:38)
[2019-10-06] MEDS ORDERED: amLODIPine BESYLATE 5 MG TABLET (FP) ONE (10:38)
[2019-10-06] MEDS ORDERED: ENOXAPARIN NA (PORCINE) 40 MG/0.4 ML DISP.SYRIN SQ ONE (10:38)
[2019-10-06] MEDS ORDERED: FOLIC ACID 1 MG TABLET (FP) ONE (10:38)
[2019-10-06] MEDS ORDERED: CLOPIDOGREL BISULFATE 75 MG TABLET (FP) ONE (10:38)
[2019-10-06] MEDS: ASPIRIN COATED 81 MG TABLET.EC PO SCH (10:58)
[2019-10-06] MEDS: CYANOCOBALAMIN 1,000 MCG TABLET (FP) PO SCH (10:58)
[2019-10-06] MEDS: LISINOPRIL 10 MG TABLET (FP) PO SCH (10:58)
[2019-10-06] MEDS: amLODIPine BESYLATE 5 MG TABLET (FP) PO SCH (10:58)
[2019-10-06] MEDS: ENOXAPARIN NA (PORCINE) 40 MG/0.4 ML DISP.SYRIN SQ SCH (10:58)
[2019-10-06] MEDS: FOLIC ACID 1 MG TABLET (FP) PO SCH (10:58)
[2019-10-06] MEDS: UMECLIDINIUM/VILANTEROL (ANORO) 62.5/25 MCG INHALER IH SCH (10:58)
[2019-10-06] MEDS: CLOPIDOGREL BISULFATE 75 MG TABLET (FP) PO SCH (10:58)
--- NOTE | 2019-10-06 11:18 | CON.CARD ---
Consult Consult Specialty:: Cardiology - History of Present Illness Chief Complaint: Chest pain History of Present Illness: This is a 59 year old male with a PMH of HTN, HLD, COPD, and polysubstance abuse. He was discharged from [facility] 09/15/2019. He recently had RLE stents placed and is on aspirin and Plavix, apparently he is scheduled for a vascular procedure this week. He reported using crack cocaine, drinking ETOH, and smoking cigarettes. This was followed by chest pain which he described initially as 9/10, radiating to the upper back and down the left arm. The pain is constant and now mild. 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 (caroptid artery stenosis 75% occlusion left side) Cardio/Vascular: Yes: HTN, Hyperlipdemia Pulmonary: Yes: COPD - Alcohol/Substance Use Hx Alcohol Use: Yes Date of Last Use: 09/12/19 - Smoking History Smoking history: Current every day smoker Have you smoked in the past 12 months: Yes Aproximately how many cigarettes per day: 10 - Social History ADL: Support Services Occupation: unemployed History of Recent Travel: No Home Medications - Allergies Allergies/Adverse Reactions: Allergies Allergy/AdvReac Type Severity Reaction Status Date / Time Penicillins Allergy Verified 10/05/19 19:24 - Home Medications Home Medications: Ambulatory Orders Amlodipine Besylate/Benazepril [Amlodipine-Benazepril 5-10 mg] 1 each PO DAILY 03/03/19 Aspirin Coated [Ecotrin -] 81 mg PO DAILY 03/03/19 Atorvastatin Calcium [Lipitor] 20 mg PO DAILY 03/03/19 Ergocalciferol (Vitamin D2) [Vitamin D2] 50,000 unit PO WEEKLY 03/03/19 Thiamine Mononitrate [Vitamin B-1] 100 mg PO DAILY 03/03/19 Umeclidinium Brm/Vilanterol Tr [Anoro Ellipta 62.5-25 Mcg INH] 1 each IH DAILY 03/03/19 Clopidogrel Bisulfate [Plavix] 75 mg PO DAILY 09/13/19 Cyanocobalamin (Vitamin B-12) [Vitamin B-12] 1,000 mcg PO DAILY 09/13/19 Folic Acid - 1 mg PO DAILY 09/13/19 Vital Signs: Vital Signs Temperature 98.4 F 10/06/19 10:47 Pulse Rate 80 10/06/19 10:47 Respiratory Rate 18 10/06/19 10:47 Blood Pressure 113/64 10/06/19 10:47 O2 Sat by Pulse Oximetry (%) 98 10/06/19 10:47 Constitutional: Yes: No Distress HENT: Yes: WNL Neck: Yes: WNL Respiratory: Yes: CTA Bilaterally Gastrointestinal: Yes: Soft Cardiovascular: Yes: Regular Rate and Rhythm Heart Sounds: Yes: S1, S2 Extremities: Yes: WNL Edema: No Neurological: Yes: Alert - Other Data Labs, Other Data: CBC, BMP 10/06/19 06:10 10/06/19 06:10 INR, PTT INR 0.87 (0.83-1.09) 10/05/19 20:40 Troponin, BNP 10/05/19 10/06/19 10/06/19 20:46 02:15 06:10 Troponin I < 0.02 < 0.02 < 0.02 B-Natriuretic Peptide 46.3 Troponin, BNP 10/05/19 10/06/19 10/06/19 20:46 02:15 06:10 Troponin I < 0.02 < 0.02 < 0.02 B-Natriuretic Peptide 46.3 Assessment/Plan Chest Pain No EKG or enzyme evidence that this is an acute coronary syndrome, symptoms are somewhat atypical Would avoid Beta Blockers given recent cocaine use Would obtain an echocardiogram Outpatient stress testing when no recent cocaine use Continue ASA 81 mg PO daily and Plavix 75 mg daily Follow up with Vascular upon discharge HTN/HLD Continue: Lipitor 20 mg PO daily Amlodipine 5 mg PO daily Lisinopril 10 mg PO daily
--- NOTE | 2019-10-06 18:23 | EKG ---
Test Reason : Blood Pressure : / mmHG Vent. Rate : 104 BPM Atrial Rate : 104 BPM P-R Int : 148 ms QRS Dur : 086 ms QT Int : 336 ms P-R-T Axes : 069 060 051 degrees QTc Int : 441 ms SINUS TACHYCARDIA CANNOT RULE OUT ANTERIOR INFARCT , AGE UNDETERMINED ABNORMAL ECG WHEN COMPARED WITH ECG OF 13-SEP-2019 08:57, NO SIGNIFICANT CHANGE WAS FOUND Confirmed by LÓPEZ PORTILLO MD ([id number]) on 10/06/2019 6:23:00 PM Referred By: Confirmed By:LÓPEZ PORTILLO MD
[2019-10-06] MEDS: NICOTINE 21 MG/24 HOURS TOPICAL PATCH TD SCH (18:29)
[2019-10-07] MEDS: chlordiazePOXIDE HCL 10 MG CAPSULE PO SCH ×2 (05:21→11:29)
--- NOTE | 2019-10-07 08:19 | PN ---
Progress Note, Physician - Current Medication List Current Medications: Active Medications Amlodipine Besylate (Norvasc -) 5 mg PO DAILY [facility] Last Admin: 10/06/19 10:58 Dose: 5 mg Documented by: Aspirin (Ecotrin -) 81 mg PO DAILY [facility] Last Admin: 10/06/19 10:58 Dose: 81 mg Documented by: Atorvastatin Calcium (Lipitor -) 20 mg PO HS [facility] Last Admin: 10/06/19 22:32 Dose: 20 mg Documented by: Chlordiazepoxide HCl (Librium -) 10 mg PO [id number] [facility] Stop: 10/07/19 23:01 Last Admin: 10/07/19 05:21 Dose: 10 mg Documented by: Chlordiazepoxide HCl (Librium -) 10 mg PO BID@0500,1700 [facility] Stop: 10/08/19 17:01 Chlordiazepoxide HCl (Librium -) 10 mg PO ONCE ONE Stop: 10/09/19 05:01 Clopidogrel Bisulfate (Plavix -) 75 mg PO DAILY [facility] Last Admin: 10/06/19 10:58 Dose: 75 mg Documented by: Cyanocobalamin (Vitamin B12 -) 1,000 mcg PO DAILY [facility] Last Admin: 10/06/19 10:58 Dose: 1,000 mcg Documented by: Enoxaparin Sodium (Lovenox -) 40 mg SQ DAILY [facility] Last Admin: 10/06/19 10:58 Dose: 40 mg Documented by: Folic Acid (Folic Acid -) 1 mg PO DAILY [facility] Last Admin: 10/06/19 10:58 Dose: 1 mg Documented by: Lisinopril (Prinivil) 10 mg PO DAILY [facility] Last Admin: 10/06/19 10:58 Dose: 10 mg Documented by: Nicotine (Nicoderm Patch -) 21 mg TD DAILY [facility] Last Admin: 10/06/19 18:29 Dose: 21 mg Documented by: Umeclidinium/Vilanterol (Anoro Ellipta 62.5-25 Mcg Inh) 1 puff IH DAILY [facility] Last Admin: 10/06/19 10:58 Dose: 1 puff Documented by: - Objective Vital Signs: Vital Signs Temperature 97.6 F 10/07/19 00:51 Pulse Rate 70 10/07/19 05:00 Respiratory Rate 18 10/07/19 05:00 Blood Pressure 113/70 10/07/19 05:00 O2 Sat by Pulse Oximetry (%) 96 10/06/19 17:41 Cardiovascular: Yes: Regular Rate and Rhythm Respiratory: Yes: Regular, CTA Bilaterally Gastrointestinal: Yes: Normal Bowel Sounds, Soft Labs: CBC, BMP 10/06/19 06:10 10/06/19 06:10 INR, PTT INR 0.87 (0.83-1.09) 10/05/19 20:40 Problem List - Problems (1) Chest pain Assessment/Plan: in the setting of Cocaine/Crack Use /Rule Out ACS no further left sises chest pian workup- troponin normal, EKG with no acute ischemic changes, CXR no acute findings monitor on telemetry for ventricular ectopy c/w asa, plavix and statin c/w amlodipine and lisinopril for bp control Cardiology- Dr. 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 - patient requesting detox upon d/c c/w folic acid and vitamin b12 Code(s): F19.10 - OTHER PSYCHOACTIVE SUBSTANCE ABUSE, UNCOMPLICATED (3) Carotid artery stenosis Assessment/Plan: per vascular has follow up planned Code(s): I65.29 - OCCLUSION AND STENOSIS OF UNSPECIFIED CAROTID ARTERY (4) Chronic obstructive airway disease Assessment/Plan: stable Code(s): J44.9 - CHRONIC OBSTRUCTIVE PULMONARY DISEASE, UNSPECIFIED (5) Hypertension Assessment/Plan: c/w amlodipine and lisinopril Code(s): I10 - ESSENTIAL (PRIMARY) HYPERTENSION Qualifiers: Hypertension type: essential hypertension Qualified Code(s): I10 - Essential (primary) hypertension (6) PAD (peripheral artery disease) Assessment/Plan: Hx of RLE stent and ?left leg clot clinically no swelling or pain c/w asa and plavix Code(s): I73.9 - PERIPHERAL VASCULAR DISEASE, UNSPECIFIED
[2019-10-07 08:50] LABS: BASO % 0.8 % (0-2.0); HEMATOCRIT 43.2 % (35.4-49); HEMOGLOBIN 14.1 GM/dL (11.7-16.9); LYMPH % 24.1 % (8-40); MCH 31.6 pg (25.7-33.7); MCHC 32.7 g/dl (32.0-35.9); MEAN CELL VOLUME 96.5 fl (80-96); MEAN PLT VOLUME 7.2 fl (7.5-11.1); MONO % 6.5 % (3.8-10.2); NEUT % 67.6 % (42.8-82.8); PLATELET COUNT 276 K/MM3 (134-434); RBC 4.47 M/mm3 (4.00-5.60); RDW 14.4 % (11.9-15.9); WHITE BLOOD COUNT 7.5 K/mm3 (4.0-10.0)
[2019-10-07 09:17] LABS: ALBUMIN 3.2 g/dl (3.4-5.0); ALK PHOS 83 U/L (45-117); ANION GAP 10 MMOL/L (8-16); BILIRUBIN,TOTAL 0.7 mg/dL (0.2-1); BLOOD UREA NITROGEN 13.3 mg/dL (7-18); CALCIUM 9.3 mg/dL (8.5-10.1); CHLORIDE 103 mmol/L (98-107); CO2 28 mmol/L (21-32); CREATININE 0.8 mg/dL (0.55-1.3); GLUCOSE,RANDOM 123 mg/dL (74-106); POTASSIUM 3.9 mmol/L (3.5-5.1); SGOT/AST 38 U/L (15-37); SGPT/ALT 54 U/L (13-61); SODIUM 141 mmol/L (136-145); TOT PROT 6.6 g/dl (6.4-8.2)
[2019-10-07] MEDS: UMECLIDINIUM/VILANTEROL (ANORO) 62.5/25 MCG INHALER IH SCH (09:55)
[2019-10-07] MEDS: NICOTINE 21 MG/24 HOURS TOPICAL PATCH TD SCH (09:55)
[2019-10-07] MEDS: ENOXAPARIN NA (PORCINE) 40 MG/0.4 ML DISP.SYRIN SQ SCH (09:56)
[2019-10-07] MEDS: LISINOPRIL 10 MG TABLET (FP) PO SCH (09:56)
[2019-10-07] MEDS: CLOPIDOGREL BISULFATE 75 MG TABLET (FP) PO SCH (09:56)
[2019-10-07] MEDS: FOLIC ACID 1 MG TABLET (FP) PO SCH (09:56)
[2019-10-07] MEDS: ASPIRIN COATED 81 MG TABLET.EC PO SCH (09:56)
[2019-10-07] MEDS: CYANOCOBALAMIN 1,000 MCG TABLET (FP) PO SCH (09:56)
[2019-10-07] MEDS: amLODIPine BESYLATE 5 MG TABLET (FP) PO SCH (09:56)
--- NOTE | 2019-10-07 13:19 | PN ---
Progress Note, Physician History of Present Illness: This is a 59 year old male with a PMH of HTN, HLD, COPD, and polysubstance abuse. He was discharged from [facility] 09/15/2019. He recently had RLE stents placed and is on aspirin and Plavix, apparently he is scheduled for a vascular procedure this week. He reported using crack cocaine, drinking ETOH, and smoking cigarettes. This was followed by chest pain which he described initially as 9/10 , radiating to the upper back and down the left arm. The pain is constant and now mild. Troponin <0.02 x3 EKG sinus tachcardia at 104 BPM and no acute changes CXR unremarkable Vascular Doppler of the lower extremities, vessels are patent Echocardiogram 10/07/2019; Normal LV function EF 61% - Current Medication List Current Medications: Active Medications Amlodipine Besylate (Norvasc -) 5 mg PO DAILY [facility] Last Admin: 10/07/19 09:56 Dose: 5 mg Documented by: Aspirin (Ecotrin -) 81 mg PO DAILY [facility] Last Admin: 10/07/19 09:56 Dose: 81 mg Documented by: Atorvastatin Calcium (Lipitor -) 20 mg PO HS [facility] Last Admin: 10/06/19 22:32 Dose: 20 mg Documented by: Chlordiazepoxide HCl (Librium -) 10 mg PO [id number] [facility] Stop: 10/07/19 23:01 Last Admin: 10/07/19 11:29 Dose: 10 mg Documented by: Chlordiazepoxide HCl (Librium -) 10 mg PO BID@0500,1700 [facility] Stop: 10/08/19 17:01 Chlordiazepoxide HCl (Librium -) 10 mg PO ONCE ONE Stop: 10/09/19 05:01 Clopidogrel Bisulfate (Plavix -) 75 mg PO DAILY [facility] Last Admin: 10/07/19 09:56 Dose: 75 mg Documented by: Cyanocobalamin (Vitamin B12 -) 1,000 mcg PO DAILY [facility] Last Admin: 10/07/19 09:56 Dose: 1,000 mcg Documented by: Enoxaparin Sodium (Lovenox -) 40 mg SQ DAILY [facility] Last Admin: 10/07/19 09:56 Dose: 40 mg Documented by: Folic Acid (Folic Acid -) 1 mg PO DAILY [facility] Last Admin: 10/07/19 09:56 Dose: 1 mg Documented by: Lisinopril (Prinivil) 10 mg PO DAILY [facility] Last Admin: 10/07/19 09:56 Dose: 10 mg Documented by: Nicotine (Nicoderm Patch -) 21 mg TD DAILY [facility] Last Admin: 10/07/19 09:55 Dose: 21 mg Documented by: Umeclidinium/Vilanterol (Anoro Ellipta 62.5-25 Mcg Inh) 1 puff IH DAILY [facility] Last Admin: 10/07/19 09:55 Dose: 1 puff Documented by: - Objective Vital Signs: Vital Signs Temperature 98.2 F 10/07/19 09:00 Pulse Rate 70 10/07/19 09:00 Respiratory Rate 20 10/07/19 09:00 Blood Pressure 112/70 10/07/19 09:00 O2 Sat by Pulse Oximetry (%) 96 10/07/19 09:00 Constitutional: Yes: No Distress Eyes: Yes: WNL HENT: Yes: WNL Neck: Yes: WNL Cardiovascular: Yes: Regular Rate and Rhythm, S1, S2 Respiratory: Yes: CTA Bilaterally Gastrointestinal: Yes: Soft Edema: No Neurological: Yes: Alert Labs: CBC, BMP 10/07/19 08:37 10/07/19 08:37 INR, PTT INR 0.87 (0.83-1.09) 10/05/19 20:40 Assessment/Plan Chest Pain Echocardiogram is unremarkable No EKG or enzyme evidence that this is an acute coronary syndrome, symptoms are somewhat atypical Would avoid Beta Blockers given recent cocaine use Outpatient stress testing when no recent cocaine use Continue ASA 81 mg PO daily and Plavix 75 mg daily Follow up with Vascular upon discharge HTN/HLD Continue: Lipitor 20 mg PO daily Amlodipine 5 mg PO daily Lisinopril 10 mg PO daily No further inpatient cardiac evaluation is required Should follow up with cardiology as an outpatient
--- NOTE | 2019-10-07 13:49 | ECHO ---
Version: 1 Name: RM BAKER Exam: Adult Echocardiogram Study Date: 10/07/2019, 12:19 PM Age: 59 Years MMode/2D Measurements & Calculations IVSd: 0.89 cm LVIDs: 2.42 cm LVIDd: 3.5 cm LVPWd: 0.98 cm LAV (MOD-bp): 28.2 ml LVOT diam: 1.98 cm Ao root diam: 2.49 cm LA dimension: 2.7 cm Doppler Measurements & Calculations MV E max jourdan: 81.4 cm/sec Med E/e': 12.3 MV A max jourdan: 96.8 cm/sec Med Peak E' Jourdan: 6.6 cm/sec MV E/A: 0.84 Lat E/e': 8.4 Lat Peak E' Jourdan: 9.7 cm/sec Ao max P.8 mmHg Ao V2 max: 192.1 cm/sec AI P1/2t: 573.4 msec TR max jourdan: 169.7 cm/sec TR max P.5 mmHg Left Ventricle The left ventricular size, thickness and function are normal. EF 61%. Abnormal diastolic relaxation (Grade 1). Right Ventricle The right ventricle is normal in size and function. Atria Normal left and right atrial size and function. Mitral Valve The mitral valve is normal in structure and function. Tricuspid Valve The tricuspid valve is normal in structure and function. Trace TR, PASP 17 mmHg. Aortic Valve The aortic valve is normal in structure and function. Pulmonic Valve The pulmonic valve is normal in structure and function. Great Vessels The aortic root is normal size. Pericardium/Pleura There is no pericardial effusion. Summary Statements The left ventricular size, thickness and function are normal EF 61% Abnormal diastolic relaxation (Grade 1) The right ventricle is normal in size and function. Normal left and right atrial size and function. The mitral valve is normal in structure and function. The tricuspid valve is normal in structure and function. Trace TR, PASP 17 mmHg The aortic valve is normal in structure and function. MD Raciel Gann 10/07/2019, 1:49 PM Ordering Physician: Sadiq Olvera Performed By: Nohemy Kincaid
[2019-10-07 15:14] VITALS: BP 109/67; PULSE 84; TEMP 98.1
--- NOTE | 2019-10-07 19:52 | CONSULT ---
Consult Detox [facility] Reason for Current Admission/Consult: Substance Use Disorder Referred by:: Mohsen Olvera - History History of Present Illness: This is a 59 year old male with a PMH of HTN, HLD, COPD, and polysubstance abuse. He was discharged from [facility] 09/15/2019 after completing a rapid alcohol detox. He recently had RLE stents placed in 06/2019 and is on aspirin and Plavix, apparently he is scheduled for a vascular procedure this week. He reported using crack cocaine, drinking ETOH, and smoking cigarettes. This was followed by chest pain which he described initially as 9/10, radiating to the upper back and down the left arm. The pain is constant and now mild. Troponin <0.02 x3 EKG sinus tachcardia at 104 BPM and no acute changes CXR unremarkable Vascular Doppler of the lower extremities, vessels are patent Echocardiogram 10/07/2019; Normal LV function EF 61% - History Source History Provided By: Medical Record Limitations to Obtaining History: No Limitations - Alcohol/Substance Use Hx Alcohol Use: Yes Hx Substance Use: Yes (alcohol and cocaine) Hx Substance Use Treatment: Yes (09/12-09/15/2019) - Current Drug/Alcohol Use Alcohol Route: Oral Frequency: Daily Amount used: 1/2 pint bacardi + 6 pack beers 12 oz Age of first use: 14 Date of Last Use: 10/05/19 Cocaine Route: Inhalation Frequency: 1-3 times last 30 days Amount used: $20 Age of first use: 17 Date of Last Use: 10/05/19 - Past Medical History 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 Atypical Chest Pain Cardiac caused ruled out by tests already performed. 2. Alcohol Dependence Patient did have a short detox for alcohol from 09/12-09/15/19 and due to few withdrawals, completed detox in 3 days. It may be that he overestimates his alcohol use and did not need severe detox protocol and does not now seem to need detox. CIWA score of 0 does not dictate detox necessity. If he wishes to follow up with rehab upon medical stabilization, then he can be referred back to [facility] for rehab from alcohol and cocaine use. Patient did not on early September stay at [facility] self-disclose the use of this substance. 3. HTN/HLD: Continue present managment and meds as described by attending physician. - Medication Detox Regimen/Protocol: Not Applicable
[2019-10-08] MEDS ORDERED: chlordiazePOXIDE HCL 10 MG CAPSULE PO SCH (05:00)
[2019-10-09] MEDS ORDERED: chlordiazePOXIDE HCL 10 MG CAPSULE PO ONE (05:00)
== END 2019-10-07 15:25 | disposition left against medical advice (07) ==
LOC: JER 19:02 → JERBED 22:03 → J4W 10-06 13:56
PROVIDERS: ADMIT Internal Medicine; ATTEND Family Medicine
PROC: 3E023GC Introduction of Other Therapeutic Substance into Muscle, Percutaneous Approach (ICD-10-PCS; principal; 2019-10-05)
PROC: 3E0337Z Introduction of Electrolytic and Water Balance Substance into Peripheral Vein, Percutaneous Approach (ICD-10-PCS; 2019-10-05)
PROC: 3E033NZ Introduction of Analgesics, Hypnotics, Sedatives into Peripheral Vein, Percutaneous Approach (ICD-10-PCS; 2019-10-05)
DX: F19.10 Other psychoactive substance abuse, uncomplicated (principal); I10 Essential (primary) hypertension; E78.5 Hyperlipidemia, unspecified; J44.9 Chronic obstructive pulmonary disease, unspecified; Z95.828 Presence of other vascular implants and grafts; R00.0 Tachycardia, unspecified; Z88.0 Allergy status to penicillin; I65.29 Occlusion and stenosis of unspecified carotid artery; F10.99 Alcohol use, unspecified with unspecified alcohol-induced disorder; F17.210 Nicotine dependence, cigarettes, uncomplicated
CPT/HCPCS: 36415; 71045-TC-FY; 80048; 80053; 82550; 82553; 83735; 83880; 84484; 85025; 85027; 85379; 85610; 85730; 93005; 93010; 93306-TC; 93970-TC; 99285-25; G0378; J0131; U0003

== ENCOUNTER 2019-11-29 08:24 | Inpatient (IN) | payer OTHER ==
--- OUTSIDE RECORDS SUMMARY | 2019-11-29 08:28 | XMS ---
:1960 Author Organization [facility] Support Name Relationship Address Phone SE, SELF-EMPLOYED Unavailable Unavailable Unavailable SE Unavailable Unavailable Unavailable NA Unavailable Unavailable Unavailable VENESSA BAKER MOTHER [address] [facility] [address] [phone] [place] [address] VENESSA BAKER Mother [address] [facility] [address] [place] [address] Re-disclosure Warning The records that you are about to access may contain information from federally- assisted alcohol or drug abuse programs. If such information is present, then the following federally mandated warning applies: This information has been disclosed to you from records protected by federal confidentiality rules (42 CFR part 2). The federal rules prohibit you from making any further disclosure of this information unless further disclosure is expressly permitted by the written consent of the person to whom it pertains or as otherwise permitted by 42 CFR part 2. A general authorization for the release of medical or other information is NOT sufficient for this purpose. The Federal rules restrict any use of the information to criminally investigate or prosecute any alcohol or drug abuse patient.The records that you are about to access may contain highly sensitive health information, the redisclosure of which is protected by Article 27-F of the [facility] Public Health law. If you continue you may haveaccess to information: Regarding HIV / AIDS; Provided by facilities licensed or operated by the [facility] Office of Mental Health; or Provided by the [facility] Office for People With Developmental Disabilities. If such information is present, then the following [facility] mandated warning applies: This information has been disclosed to you from confidential records which are protected by state law. State law prohibits you from making any further disclosure of this information without the specific written consent of the person to whom it pertains, or as otherwise permitted by law. Any unauthorized further disclosure in violation of state law may result in a fine or fdc sentence or both. A general authorization for the release of medical or other information is NOT sufficient authorization for further disclosure. Insurance Providers Payer name Policy type Policy ID Covered Covered green party's Policy P joss / Coverage green party ID relationship to [place] Inf ormation type lovell VALUE [id number] SP [id number] 01 OPTIONS-MEDI 1 CAID HIP MEDICAID [id number] SP [id number] 1 VALUE [id number] SP [id number] 01 OPTIONS-MEDI 1 CAID HIP MEDICAID O [id number] HMO OP 1 Results ID Date Data Source [id number] 10/06/2019 02:30:00 AM EDT [facility] Name Value Range Interpretation Description Data Sup porting Code Source(s) Document(s ) SARS [facility] coronavirus 2 RNA This lab was ordered by [facility] and reported by [facility]. ID Date Data Source [id number] 09/19/2019 01:00:00 PM EDT [facility] Name Value Range Interpretation Code Description Data Radha rce(s) Supporting Document(s ) HOLOGIC [facility] SARS-CoV-2 TMA PCR This lab was ordered by AMADA whittington reported by [employer]. ID Date Data Source [id number] 09/13/2019 10:30:00 AM EDT [facility] Name Value Range Interpretation Description Data Sup porting Code Source(s) Document(s ) SARS [facility] coronavirus 2 RNA This lab was ordered by [facility] Jose Russo and reported by [facility]. Procedure
--- NOTE | 2019-11-29 09:21 | BHS.RME ---
2019 N Coronavirus Screen - COVID-19 Screening Questions Dx of COVID-19 or had a positive test in the last 4 weeks?: No Contact with known/suspected COVID patient in last 14 days?: No Traveled domestically/internationally in the last 14 days?: No Substance Use & Tx History - Substance Use History Alcohol Substance amount: 2 6 packs of beer, 1/2 pint liqour Frequency of use: Daily Substance route: Oral Date of Last Use: 11/28/19 - Last Treatment Date of last treatment: 09/13/2019 Treatment type: Substance Use Disorder (MICHELE) Where was last treatment: Rehab Physical/Psych/Mental Status - Behavior General Behavior: Increased activity (restlessness, agitation) Eye Contact: Normal Other Behaviors: Mannerisms - Cooperativeness Cooperativeness: Cooperative - Thinking Thought Processes: Tight Thought content: Future oriented - Physical Health Problems Is patient presently having any pain?: No Does patient presently have any injuries (include location): No Does patient currently have a fever: No CIWA Nausea/Vomitin-Mild Nausea/No Vomiting Muscle Tremors: 3 Anxiety: 2 Agitation: 2 Paroxysmal Sweats: 2 Orientation: 0-Oriented Tacttile Disturbances: 0-None Auditory Disturbances: 0-None Visual Disturbances: 0-None Headache: 1-Very Mild CIWA-Ar Total Score: 11
--- NOTE | 2019-11-29 09:29 | HP ---
CIWA Score Nausea/Vomitin-Mild Nausea/No Vomiting Muscle Tremors: 3 Anxiety: 2 Agitation: 2 Paroxysmal Sweats: 2 Orientation: 0-Oriented Tacttile Disturbances: 0-None Auditory Disturbances: 0-None Visual Disturbances: 0-None Headache: 1-Very Mild CIWA-Ar Total Score: 11 - Admission Criteria [facility]ASAS Guidelines: Admission for Medically Managed Detox: Requires at least one of the followin. CIWA greater than 12 2. Seizures within the past 24 hours 3. Delirium tremens within the past 24 hours 4. Hallucinations within the past 24 hours 5. Acute intervention needed for co occurring medical disorder 6. Acute intervention needed for co occurring psychiatric disorder 7. Severe withdrawal that cannot be handled at a lower level of care (continued vomiting, continued diarrhea, abnormal vital signs) requiring intravenous medication and/or fluids 8. 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 side) Cardiovascular: Yes: HTN, Hyperlipdemia Pulmonary: Yes: COPD - Smoking History Smoking history: Current every day smoker Have you smoked in the past 12 months: Yes Aproximately how many cigarettes per day: 10 - Alcohol/Substance Use Hx Alcohol Use: Yes Date of Last Use: 09/12/19 - Social History ADL: Support Services Occupation: unemployed History of Recent Travel: No Admission ROS [facility] Chief Complaint: I need detox, I drink a lot of alcohol Allergies/Adverse Reactions: Allergies Allergy/AdvReac Type Severity Reaction Status Date / Time Penicillins Allergy Verified 11/29/19 09:30 History of Present Illness: Patient is a 59 years old man with alcohol dependence who presents for alcohol withdrawal, requesting detox. His CIWA is 11 but he reports alcohol use this m orning, BENITA .034, patient has high blood pressure, COPD, DVT and CAD with h/o balloon angioplasty. Patient has risk of worsening condition if withdrawal symptoms worsen, he will be admitted for alcohol detox He denies seizures, reports blackouts, last episode a month ago. Exam Limitations: No Limitations - Ebola screening Have you traveled outside of the country in the last 21 days: No Have you had contact with anyone from an Ebola affected area: No Have you been sick,other than usual withdrawal symptoms: No Do you have a fever: No - Review of Systems Constitutional: No Symptoms Reported EENT: reports: No Symptoms Reported Respiratory: reports: SOB with Exertion Cardiac: reports: No Symptoms Reported GI: reports: Nausea : reports: No Symptoms Reported Musculoskeletal: reports: Muscle Pain, Muscle Weakness Integumentary: reports: Sweating Neuro: reports: Numbness, Tremors Endocrine: reports: No Symptoms Reported Hematology: reports: No Symptoms Reported Psychiatric: reports: No Sypmtoms Reported Other Systems: Reviewed and Negative Patient History - Patient Medical History Hx Anemia: No Hx Asthma: No Hx Chronic Obstructive Pulmonary Disease (COPD): Yes Hx Cancer: No Hx Cardiac Disorders: Yes (CAD) Hx Congestive Heart Failure: No Hx Hypertension: Yes Hx Hypercholesterolemia: Yes Hx Pacemaker: No HX Cerebrovascular Accident: No Hx Seizures: No Hx Dementia: No Hx Diabetes: No Hx Gastrointestinal Disorders: No Hx Liver Disease: No Hx Genitourinary Disorders: No Hx Sexually Transmitted Disorders: No Hx Renal Disease (ESRD): No Hx Thyroid Disease: No Hx Human Immunodeficiency Virus (HIV): No Hx Hepatitis C: No Hx Depression: No Hx Suicide Attempt: No Hx Bipolar Disorder: No Hx Schizophrenia: No - Patient Surgical History Past Surgical History: Yes Hx Neurologic Surgery: Yes (in [facility]) Hx Cataract Extraction: No Hx Cardiac Surgery: Yes (Balloon angioplast) Hx Lung Surgery: No Hx Breast Surgery: No Hx Breast Biopsy: No Hx Abdominal Surgery: No Hx Appendectomy: No Hx Cholecystectomy: No Hx Genitourinary Surgery: No Hx Section: No Hx Orthopedic Surgery: No Hx Hysterectomy: No Other Surgical History: cervical spinal surgeries with multiple screws in 2016 Anesthesia Reaction: No - PPD History Previous Implant?: Yes Documented Results: Positive w/o proof Implanted On Prior R Admission?: Yes Date: 02/21/95 (CXR neg on 10/05/19) Results: + INH and Rifam PPD to be Administered?: No - Smoking Cessation Smoking history: Current every day smoker Have you smoked in the past 12 months: Yes Aproximately how many cigarettes per day: 10 Hx Chewing Tobacco Use: No Initiated information on smoking cessation: Yes 'Breaking Loose' booklet given: 11/29/19 - Substances abused Alcohol Other (specify): beer and liqour Substance route: Oral Frequency: Daily Amount used: 2-6 packs, 1/2 pint Age of first use: 16 Date of last use: 11/29/19 Admission Physical Exam [facility] - Physical General Appearance: Yes: Appropriately Dressed HEENTM: Yes: Hearing grossly Normal, Normocephalic, Normal Voice, Pharynx Normal Respiratory: Yes: Chest Non-Tender, Lungs Clear, Normal Breath Sounds, No Respiratory Distress, No Accessory Muscle Use Neck: Yes: No masses,lesions,Nodules, Supple Breast: Yes: Breast Exam Deferred Cardiology: Yes: Regular Rhythm, Regular Rate, S1, S2 Abdominal: Yes: Normal Bowel Sounds, Non Tender, Soft Genitourinary: Yes: Within Normal Limits Back: Yes: Normal Inspection Musculoskeletal: Yes: full range of Motion, Gait Steady Extremities: Yes: Normal Capillary Refill, Normal Range of Motion, Non-Tender, Tremors Neurological: Yes: group care worker II-XII NML intact, Fully Oriented, Alert, Normal Mood/Affect, Normal Response Integumentary: Yes: Warm, Moist Lymphatic: Yes: Within Normal Limits - Diagnostic (1) Alcohol dependence with withdrawal Current Visit: Yes Status: Acute Qualifiers: Complication of substance-induced condition: uncomplicated Qualified Code(s): F10.230 - Alcohol dependence with withdrawal, uncomplicated (2) Chronic obstructive airway disease Current Visit: Yes Status: Chronic Qualifiers: COPD type: chronic bronchitis (3) Low back pain Current Visit: Yes Status: Chronic Qualifiers: Chronicity: chronic Back pain laterality: bilateral (4) Hyperlipidemia Current Visit: Yes Status: Chronic Qualifiers: Hyperlipidemia type: pure hypercholesterolemia Qualified Code(s): E78.00 - Pure hypercholesterolemia, unspecified; E78.0 - Pure hypercholesterolemia (5) Hypertension Current Visit: Yes Status: Chronic Qualifiers: Hypertension type: essential hypertension Qualified Code(s): I10 - Essential (primary) hypertension Cleared for Admission [facility] - Detox or Rehab [facility] Level of Care: Medically Managed Detox Regimen/Protocol: Librium Claeared for Rehab Admission: No Breathalyzer - Breathalyzer Breathalyzer: 0 (drank yesterday afternoon) Urine Drug Screen - Test Device Lot number: [id number] Expiration date: 09/11/20 - Control Is test valid?: Yes - Results Drug screen NEGATIVE: No Urine drug screen results: [facility]ADLEY-Cocaine Inpatient Rehab Admission - Rehab Decision to Admit Inpatient rehab admission?: No
[2019-11-29] MEDS ORDERED: chlordiazePOXIDE HCL 25 MG CAPSULE PO PRN (09:38)
[2019-11-29] MEDS ORDERED: BISMUTH SUBSALICYLATE 524 MG/30 ML UD PO PRN (09:38)
[2019-11-29] MEDS ORDERED: MAGNESIUM CITRATE 300 ML BOTTLE PO PRN (09:38)
[2019-11-29] MEDS ORDERED: METHOCARBAMOL 500 MG TABLET PO PRN (09:38)
[2019-11-29] MEDS ORDERED: NICOTINE POLACRILEX 2 MG GUM BUC PRN (09:38)
[2019-11-29] MEDS ORDERED: ACETAMINOPHEN 325 MG TABLET (FP) PO PRN ×2 (09:38)
[2019-11-29] MEDS ORDERED: MENTHOL/PHENOL 1 EACH UD MM PRN (09:38)
[2019-11-29] MEDS ORDERED: hydrOXYzine PAMOATE 25 MG CAPSULE (FP) PO PRN (09:38)
[2019-11-29] MEDS ORDERED: MAGNESIUM HYDROX 2400MG/30ML ORAL SUSPENSION 30 ML CUP PO PRN (09:38)
[2019-11-29] MEDS ORDERED: ONDANSETRON *ODT* 4 MG TABLET SL PRN (09:38)
[2019-11-29] MEDS ORDERED: IBUPROFEN 400 MG TABLET (FP) PO PRN (09:38)
[2019-11-29] MEDS ORDERED: MAG HYDROX/AL HYDROX/SIMETH 30 ML UNIT-DOSE CUP PO PRN (09:38)
[2019-11-29 09:43] VITALS: BMI 25.7
[2019-11-29] MEDS ORDERED: NICOTINE 7 MG/24 HOURS TOPICAL PATCH TD SCH (10:00)
[2019-11-29] MEDS ORDERED: UMECLIDINIUM/VILANTEROL (ANORO) 62.5/25 MCG INHALER IH SCH (10:00)
[2019-11-29] MEDS ORDERED: CLOPIDOGREL BISULFATE 75 MG TABLET (FP) PO SCH (10:00)
[2019-11-29] MEDS ORDERED: ASPIRIN COATED 81 MG TABLET.EC PO SCH (10:00)
[2019-11-29] MEDS ORDERED: ATORVASTATIN CA 20 MG TABLET (FP) PO SCH (10:00)
[2019-11-29] MEDS ORDERED: PRENATAL VITAMINS W/ FOLIC ACID TABLET (FP) PO SCH (10:00)
[2019-11-29] MEDS ORDERED: PATIENT'S OWN MEDICATION (NON-FORMULARY) (Amlodipine Besylate/Benazepril [Amlodipine-Benaz PO SCH (10:00)
--- OUTSIDE RECORDS SUMMARY | 2019-11-29 12:06 | XMS ---
:1960 Author Organization [facility] Support Name Relationship Address Phone SE, SELF-EMPLOYED Unavailable Unavailable Unavailable SE Unavailable Unavailable Unavailable NA Unavailable Unavailable Unavailable VENESSA BAKER MOTHER [address] [facility] [address] [phone] [place] [address] VENESSA BAKER Mother [address] [facility] [address] [place] [address] Re-disclosure Warning The records that you are [...] is protected by Article 27-F of the [facility] Public Health law. If you continue you may haveaccess to information: Regarding HIV / AIDS; Provided by facilities licensed or operated by the [facility] Office of Mental Health; or Provided by the [facility] Office for People With Developmental Disabilities. If such information is present, then the following [facility] mandated warning applies: This information has been [...] law may result in a fine or senior living sentence or both. A general authorization for the release of medical or other information is NOT sufficient authorization for further disclosure. Insurance Providers Payer name Policy type Policy ID Covered Covered constitution party's Policy P joss / Coverage constitution party ID relationship to [place] Inf ormation type lovell VALUE [id number] SP [id number] 01 OPTIONS-MEDI 1 CAID HIP MEDICAID [id number] SP [id number] 1 VALUE [id number] SP [id number] 01 OPTIONS-MEDI 1 CAID HIP MEDICAID O [id number] HMO OP 1 Results ID Date Data Source [id number] 10/06/2019 02:30:00 AM EDT [facility] Name Value Range Interpretation Description Data Sup porting Code Source(s) Document(s ) SARS [facility] coronavirus 2 RNA This lab was ordered by [facility] and reported by [facility]. ID Date Data Source [id number] 09/19/2019 01:00:00 PM EDT [facility] Name Value Range Interpretation Code Description Data Radha rce(s) Supporting Document(s ) HOLOGIC [facility] SARS-CoV-2 TMA PCR This lab was ordered by AMADA whittington reported by [employer]. ID Date Data Source [id number] 09/13/2019 10:30:00 AM EDT [facility] Name Value Range Interpretation Description Data Sup porting Code Source(s) Document(s ) SARS [facility] coronavirus 2 RNA This lab was ordered by [facility] Jose Russo and reported by [facility]. Procedure
[2019-11-29] MEDS: chlordiazePOXIDE HCL 25 MG CAPSULE PO SCH ×3 (13:57→22:06)
[2019-11-29 17:14] LABS: HEMATOCRIT 48.3 % (35.4-49); HEMOGLOBIN 16.4 GM/dL (11.7-16.9); MCH 32.1 pg (25.7-33.7); MCHC 33.9 g/dl (32.0-35.9); MEAN CELL VOLUME 94.5 fl (80-96); MEAN PLT VOLUME 7.7 fl (7.5-11.1); PLATELET COUNT 380 K/MM3 (134-434); RBC 5.11 M/mm3 (4.00-5.60); RDW 13.7 % (11.9-15.9); WHITE BLOOD COUNT 8.8 K/mm3 (4.0-10.0)
[2019-11-29 17:16] LABS: POTASSIUM 4.1 mmol/L (3.5-5.1)
[2019-11-29 17:19] LABS: CALCIUM 10.1 mg/dL (8.5-10.1)
[2019-11-29 17:20] LABS: ALBUMIN 4.1 g/dl (3.4-5.0); BLOOD UREA NITROGEN 15.9 mg/dL (7-18)
[2019-11-29 17:23] LABS: CREATININE 0.7 mg/dL (0.55-1.3)
[2019-11-29 17:24] LABS: BILIRUBIN,TOTAL 0.3 mg/dL (0.2-1); TOT PROT 7.8 g/dl (6.4-8.2)
[2019-11-29] MEDS ORDERED: THIAMINE HCL 100 MG TABLET (FP) PO SCH (22:00)
[2019-11-29] MEDS ORDERED: MELATONIN 5 MG TABLETS PO SCH (22:00)
[2019-11-30] MEDS: chlordiazePOXIDE HCL 25 MG CAPSULE PO SCH (05:08)
[2019-11-30 09:15] VITALS: BP 117/72; PULSE 87; TEMP 97.3
--- NOTE | 2019-11-30 09:15 | PN ---
S CIWA - CIWA Score Nausea/Vomitin-Mild Nausea/No Vomiting Muscle Tremors: 2 Anxiety: 3 Agitation: 0-Normal Activity Paroxysmal Sweats: 1-Minimal Palms Moist Orientation: 0-Oriented Tacttile Disturbances: 1-Very Mild Itch/Numbness Auditory Disturbances: 0-None Visual Disturbances: 2-Mild Sensitivity Headache: 2-Mild CIWA-Ar Total Score: 12 [facility] Progress Note (SOAP) Subjective: 59 years old male was admitted on 11/29/19 for alcohol withdrawal sx management treating with librium detox regiment ate breakfast in room tolerated food well ambulating in room steady gait health teaching on risks of health issues related to alcohol abuse encourage to discuss aftercare with staff Objective: 11/30/19 09:16 Vital Signs - 24 hr 11/29/19 11/29/19 11/29/19 09:32 12:24 16:36 Temperature 97.2 F L 97.3 F L 98.0 F Pulse Rate 90 87 80 Respiratory 19 18 16 Rate Blood Pressure 123/77 123/74 131/79 O2 Sat by Pulse 98 Oximetry (%) 11/29/19 11/30/19 11/30/19 20:33 06:09 08:42 Temperature 97.8 F 97.1 F L 97.3 F L Pulse Rate 82 74 87 Respiratory 18 18 18 Rate Blood Pressure 117/72 112/79 117/72 O2 Sat by Pulse 98 98 Oximetry (%) Laboratory Tests 11/29/19 11/29/19 11/29/19 09:55 09:55 09:55 WBC 8.8 RBC 5.11 Hgb 16.4 Hct 48.3 MCV 94.5 MCH 32.1 MCHC 33.9 RDW 13.7 Plt Count 380 D MPV 7.7 Sodium 141 Potassium 4.1 Chloride 105 Carbon Dioxide 28 Anion Gap 8 BUN 15.9 Creatinine 0.7 Est GFR (CKD-EPI)AfAm 119.72 Est GFR (CKD-EPI)NonAf 103.30 Random Glucose 84 Calcium 10.1 Total Bilirubin 0.3 AST 21 ALT 29 Alkaline Phosphatase 71 Total Protein 7.8 Albumin 4.1 Syphilis Serology Non-reactive 11/30/19 09:16 covid pending Assessment: 11/30/19 09:17 alcohol withdrawal Plan: librium regiment
[2019-11-30] MEDS ORDERED: LISINOPRIL 5 MG TABLET PO SCH (10:00)
[2019-11-30] MEDS ORDERED: amLODIPine BESYLATE 5 MG TABLET (FP) PO SCH (10:00)
[2019-11-30] MEDS ORDERED: FLU VACCINE (FLULAVAL) PF 60 MCG/0.5 ML SYRINGE 2020-2021 IM ONE (12:00)
--- NOTE | 2019-11-30 12:21 | DS ---
[facility] Detox Discharge Summary Admission Date: 11/29/19 Discharge Date: 11/30/19 - History Present History: Alcohol Dependence Additional Comments: 59years old male was admitted on 11/29/19 for alcohol withdrawal sx management treated with librium detox regiment mr cuello insists to leave the detox unit with one male peer today due to "my mother is sick" mr knox is alert oriented x 3 speech clearly coherently ambulating steady gaits General Appearance: Yes: Appropriately Dressed HEENTM: Yes: Hearing grossly Normal, Normocephalic, Normal Voice, Pharynx Normal Respiratory: Yes: Chest Non-Tender, Lungs Clear, Normal Breath Sounds, No Respiratory Distress, No Accessory Muscle Use Neck: Yes: No masses,lesions,Nodules, Supple Breast: Yes: Breast Exam Deferred Cardiology: Yes: Regular Rhythm, Regular Rate, S1, S2 Abdominal: Yes: Normal Bowel Sounds, Non Tender, Soft Genitourinary: Yes: Within Normal Limits Back: Yes: Normal Inspection Musculoskeletal: Yes: full range of Motion, Gait Steady Extremities: Yes: Normal Capillary Refill, Normal Range of Motion, Non-Tender, Tremors Neurological: Yes: chuck tender II-XII NML intact, Fully Oriented, Alert, Normal Mood/Affect, Normal Response Integumentary: Yes: Warm, dry Lymphatic: Yes: Within Normal Limits Pertinent Past History: time for discharge 56 minutes treatment team met with mr cuello to discuss benefit of librium completion mr cuello became oppositional abusive language to staff mr cuello wants to leave the detox unit with one male peer today and "NOW" - Physical Exam Results Vital Signs: Vital Signs Temperature 97.3 F L 11/30/19 08:42 Pulse Rate 87 11/30/19 08:42 Respiratory Rate 18 11/30/19 08:42 Blood Pressure 117/72 11/30/19 08:42 O2 Sat by Pulse Oximetry (%) 98 11/30/19 06:09 Pertinent Admission Physical Exam Findings: alcohol withdrawal Vital Signs - 24 hr 11/29/19 11/29/19 11/30/19 16:36 20:33 06:09 Temperature 98.0 F 97.8 F 97.1 F L Pulse Rate 80 82 74 Respiratory 16 18 18 Rate Blood Pressure 131/79 117/72 112/79 O2 Sat by Pulse 98 98 Oximetry (%) 11/30/19 08:42 Temperature 97.3 F L Pulse Rate 87 Respiratory 18 Rate Blood Pressure 117/72 O2 Sat by Pulse Oximetry (%) Laboratory Tests 11/29/19 11/29/19 11/29/19 09:55 09:55 09:55 WBC RBC Hgb Hct MCV MCH MCHC RDW Plt Count MPV Sodium 141 Potassium 4.1 Chloride 105 Carbon Dioxide 28 Anion Gap 8 BUN 15.9 Creatinine 0.7 Est GFR (CKD-EPI)AfAm 119.72 Est GFR (CKD-EPI)NonAf 103.30 Random Glucose 84 Calcium 10.1 Total Bilirubin 0.3 AST 21 ALT 29 Alkaline Phosphatase 71 Total Protein 7.8 Albumin 4.1 Syphilis Serology Non-reactive COVID-19 ([facility]) Not detected 11/29/19 09:55 WBC 8.8 RBC 5.11 Hgb 16.4 Hct 48.3 MCV 94.5 MCH 32.1 MCHC 33.9 RDW 13.7 Plt Count 380 D MPV 7.7 Sodium Potassium Chloride Carbon Dioxide Anion Gap BUN Creatinine Est GFR (CKD-EPI)AfAm Est GFR (CKD-EPI)NonAf Random Glucose Calcium Total Bilirubin AST ALT Alkaline Phosphatase Total Protein Albumin Syphilis Serology COVID-19 (BRAEDEN) lab noted - Treatment Hospital Course: Detox Protocol Followed, Responded well, Discharged Condition Good Patient has Accepted a Rehab Referral to: [facility] - Medication Discharge Medications: Ambulatory Orders Amlodipine Besylate/Benazepril [Amlodipine-Benazepril 5-10 mg] 1 each PO DAILY 03/03/19 Aspirin Coated [Ecotrin -] 81 mg PO DAILY 03/03/19 Atorvastatin Calcium [Lipitor] 20 mg PO DAILY 03/03/19 Ergocalciferol (Vitamin D2) [Vitamin D2] 50,000 unit PO WEEKLY 03/03/19 Thiamine Mononitrate [Vitamin B-1] 100 mg PO DAILY 03/03/19 Umeclidinium Brm/Vilanterol Tr [Anoro Ellipta 62.5-25 Mcg INH] 1 each IH DAILY 03/03/19 Clopidogrel Bisulfate [Plavix] 75 mg PO DAILY 09/13/19 Cyanocobalamin (Vitamin B-12) [Vitamin B-12] 1,000 mcg PO DAILY 09/13/19 Folic Acid - 1 mg PO DAILY 09/13/19 - Diagnosis (1) Alcohol dependence with withdrawal Status: Acute Qualifiers: Complication of substance-induced condition: uncomplicated Qualified Code(s): F10.230 - Alcohol dependence with withdrawal, uncomplicated (2) Hyperlipidemia Status: Chronic Qualifiers: Hyperlipidemia type: pure hypercholesterolemia Qualified Code(s): E78.00 - Pure hypercholesterolemia, unspecified; E78.0 - Pure hypercholesterolemia (3) Hypertension Status: Chronic Qualifiers: Hypertension type: essential hypertension Qualified Code(s): I10 - Essential (primary) hypertension (4) Substance induced mood disorder Status: Suspected - AMA Did Patient Leave Against Medical Advice: Yes CIWA Score - CIWA Score Nausea/Vomitin-Mild Nausea/No Vomiting Muscle Tremors: 2 Anxiety: 2 Agitation: 0-Normal Activity Paroxysmal Sweats: No Perspiration Orientation: 0-Oriented Tacttile Disturbances: 0-None Auditory Disturbances: 0-None Visual Disturbances: 1-Very Mild Sensitivity Headache: 1-Very Mild CIWA-Ar Total Score: 7
[2019-12-01] MEDS ORDERED: chlordiazePOXIDE HCL 25 MG CAPSULE PO SCH (05:00)
[2019-12-02] MEDS ORDERED: chlordiazePOXIDE HCL 10 MG CAPSULE PO PRN
[2019-12-02] MEDS ORDERED: chlordiazePOXIDE HCL 10 MG CAPSULE PO SCH (05:00)
[2019-12-03] MEDS ORDERED: chlordiazePOXIDE HCL 10 MG CAPSULE PO SCH (05:00)
[2019-12-04] MEDS ORDERED: chlordiazePOXIDE HCL 10 MG CAPSULE PO ONE (05:00)
== END 2019-11-30 10:56 | disposition left against medical advice (07) | DRG 770 ==
LOC: YASAS 08:24 → Y3N 12:03
PROVIDERS: ADMIT Allergy & Immunology; ATTEND Allergy & Immunology
PROC: HZ2ZZZZ Detoxification Services for Substance Abuse Treatment (ICD-10-PCS; principal; 2019-11-29)
DX: F10.230 Alcohol dependence with withdrawal, uncomplicated (principal); F17.210 Nicotine dependence, cigarettes, uncomplicated; F19.24 Other psychoactive substance dependence with psychoactive substance-induced mood disorder; E78.00 Pure hypercholesterolemia, unspecified; J42 Unspecified chronic bronchitis; I25.10 Atherosclerotic heart disease of native coronary artery without angina pectoris; I10 Essential (primary) hypertension; Z98.61 Coronary angioplasty status; I65.22 Occlusion and stenosis of left carotid artery; M54.5 Low back pain; G89.29 Other chronic pain; Z79.02 Long term (current) use of antithrombotics/antiplatelets; Z88.0 Allergy status to penicillin; Z98.1 Arthrodesis status
CPT/HCPCS: 36415; 80053; 85027; 86780; C9803; U0003

== ENCOUNTER 2019-12-26 09:08 | Inpatient (IN) | payer OTHER ==
[2019-12-26 09:46] VITALS: BMI 25.7
[2019-12-26] MEDS ORDERED: ONDANSETRON *ODT* 4 MG TABLET SL PRN (09:56)
[2019-12-26] MEDS ORDERED: MAGNESIUM HYDROX 2400MG/30ML ORAL SUSPENSION 30 ML CUP PO PRN (09:56)
[2019-12-26] MEDS ORDERED: MENTHOL/PHENOL 1 EACH UD MM PRN (09:56)
[2019-12-26] MEDS ORDERED: MAGNESIUM CITRATE 300 ML BOTTLE PO PRN (09:56)
[2019-12-26] MEDS ORDERED: MAG HYDROX/AL HYDROX/SIMETH 30 ML UNIT-DOSE CUP PO PRN (09:56)
[2019-12-26] MEDS ORDERED: IBUPROFEN 400 MG TABLET (FP) PO PRN (09:56)
[2019-12-26] MEDS ORDERED: ACETAMINOPHEN 325 MG TABLET (FP) PO PRN ×2 (09:56)
[2019-12-26] MEDS ORDERED: BISMUTH SUBSALICYLATE 262 MG/15 ML BTL PO PRN (09:56)
[2019-12-26] MEDS ORDERED: METHOCARBAMOL 500 MG TABLET PO PRN (09:56)
[2019-12-26] MEDS ORDERED: NICOTINE POLACRILEX 2 MG GUM BUC PRN (09:56)
[2019-12-26] MEDS ORDERED: chlordiazePOXIDE HCL 25 MG CAPSULE PO PRN (09:56)
[2019-12-26] MEDS ORDERED: PATIENT'S OWN MEDICATION (NON-FORMULARY) (Amlodipine Besylate/Benazepril [Amlodipine-Benaz PO SCH (10:00)
[2019-12-26] MEDS ORDERED: LISINOPRIL 10 MG TABLET PO SCH (10:00)
[2019-12-26] MEDS ORDERED: amLODIPine BESYLATE 5 MG TABLET (FP) PO SCH (10:00)
[2019-12-26] MEDS: chlordiazePOXIDE HCL 25 MG CAPSULE PO SCH ×3 (11:29→22:09)
[2019-12-26] MEDS: ATORVASTATIN CA 20 MG TABLET (FP) PO SCH (11:29)
[2019-12-26] MEDS: NICOTINE 7 MG/24 HOURS TOPICAL PATCH TD SCH (11:29)
[2019-12-26] MEDS: CLOPIDOGREL BISULFATE 75 MG TABLET (FP) PO SCH (11:29)
[2019-12-26] MEDS: ASPIRIN COATED 81 MG TABLET.EC PO SCH (11:29)
[2019-12-26] MEDS: hydrOXYzine PAMOATE 25 MG CAPSULE (FP) PO SCH ×2 (11:30→14:27)
[2019-12-26] MEDS: PRENATAL VITAMINS W/ FOLIC ACID TABLET (FP) PO SCH (11:30)
[2019-12-26] MEDS: PATIENT'S OWN MEDICATION (NON-FORMULARY) (Amlodipine Besylate/Benazepril [Amlodipine-Benaz PO SCH (11:56)
[2019-12-26] MEDS: UMECLIDINIUM/VILANTEROL (ANORO) 62.5/25 MCG INHALER IH SCH (11:58)
[2019-12-26] MEDS ORDERED: hydrOXYzine PAMOATE 25 MG CAPSULE (FP) PO PRN (15:04)
[2019-12-26 15:34] LABS: HEMATOCRIT 48.3 % (35.4-49); HEMOGLOBIN 15.6 GM/dL (11.7-16.9); MCH 30.7 pg (25.7-33.7); MCHC 32.3 g/dl (32.0-35.9); MEAN CELL VOLUME 95.1 fl (80-96); MEAN PLT VOLUME 8.3 fl (7.5-11.1); PLATELET COUNT 350 K/MM3 (134-434); RBC 5.08 M/mm3 (4.00-5.60); RDW 14.4 % (11.9-15.9); WHITE BLOOD COUNT 7.9 K/mm3 (4.0-10.0)
[2019-12-26 15:36] LABS: POTASSIUM 4.7 mmol/L (3.5-5.1)
[2019-12-26 15:38] LABS: CALCIUM 9.8 mg/dL (8.5-10.1)
[2019-12-26 15:39] LABS: ALBUMIN 4.1 g/dl (3.4-5.0); BLOOD UREA NITROGEN 13.7 mg/dL (7-18)
[2019-12-26 15:42] LABS: CREATININE 0.9 mg/dL (0.55-1.3)
[2019-12-26 15:43] LABS: BILIRUBIN,TOTAL 0.4 mg/dL (0.2-1); TOT PROT 7.7 g/dl (6.4-8.2)
[2019-12-26] MEDS: THIAMINE HCL 100 MG TABLET (FP) PO SCH (22:09)
[2019-12-26] MEDS: MELATONIN 5 MG TABLETS PO SCH (22:09)
[2019-12-27] MEDS: chlordiazePOXIDE HCL 25 MG CAPSULE PO SCH ×4 (05:26→22:21)
[2019-12-27] MEDS: PATIENT'S OWN MEDICATION (NON-FORMULARY) (Amlodipine Besylate/Benazepril [Amlodipine-Benaz PO SCH (10:30)
[2019-12-27] MEDS: PRENATAL VITAMINS W/ FOLIC ACID TABLET (FP) PO SCH (10:31)
[2019-12-27] MEDS: UMECLIDINIUM/VILANTEROL (ANORO) 62.5/25 MCG INHALER IH SCH (10:31)
[2019-12-27] MEDS: ATORVASTATIN CA 20 MG TABLET (FP) PO SCH (10:31)
[2019-12-27] MEDS: NICOTINE 7 MG/24 HOURS TOPICAL PATCH TD SCH (10:31)
[2019-12-27] MEDS: ASPIRIN COATED 81 MG TABLET.EC PO SCH (10:31)
[2019-12-27] MEDS: CLOPIDOGREL BISULFATE 75 MG TABLET (FP) PO SCH (10:31)
[2019-12-27] MEDS: NICOTINE 14 MG/24 HOURS TOPICAL PATCH TD SCH (10:52)
[2019-12-27] MEDS: THIAMINE HCL 100 MG TABLET (FP) PO SCH (22:21)
[2019-12-27] MEDS: MELATONIN 5 MG TABLETS PO SCH (22:21)
[2019-12-28] MEDS: chlordiazePOXIDE HCL 25 MG CAPSULE PO SCH ×2 (06:24→10:25)
[2019-12-28] MEDS: UMECLIDINIUM/VILANTEROL (ANORO) 62.5/25 MCG INHALER IH SCH (10:24)
[2019-12-28] MEDS: ASPIRIN COATED 81 MG TABLET.EC PO SCH (10:24)
[2019-12-28] MEDS: PATIENT'S OWN MEDICATION (NON-FORMULARY) (Amlodipine Besylate/Benazepril [Amlodipine-Benaz PO SCH (10:24)
[2019-12-28] MEDS: PRENATAL VITAMINS W/ FOLIC ACID TABLET (FP) PO SCH (10:25)
[2019-12-28] MEDS: ATORVASTATIN CA 20 MG TABLET (FP) PO SCH (10:25)
[2019-12-28] MEDS: CLOPIDOGREL BISULFATE 75 MG TABLET (FP) PO SCH (10:25)
[2019-12-28] MEDS: NICOTINE 14 MG/24 HOURS TOPICAL PATCH TD SCH (10:27)
[2019-12-28] MEDS ORDERED: FLU VACCINE (FLULAVAL) PF 60 MCG/0.5 ML SYRINGE 2020-2021 IM ONE (12:00)
[2019-12-28 13:54] VITALS: BP 118/78; PULSE 80; TEMP 96.7
[2019-12-29] MEDS ORDERED: chlordiazePOXIDE HCL 10 MG CAPSULE PO PRN
[2019-12-29] MEDS ORDERED: chlordiazePOXIDE HCL 10 MG CAPSULE PO SCH (05:00)
[2019-12-30] MEDS ORDERED: chlordiazePOXIDE HCL 10 MG CAPSULE PO SCH (05:00)
[2019-12-31] MEDS ORDERED: chlordiazePOXIDE HCL 10 MG CAPSULE PO ONE (05:00)
== END 2019-12-28 13:45 | disposition left against medical advice (07) | DRG 770 ==
LOC: YASAS 09:08 → Y6N 09:41
PROVIDERS: ADMIT Allergy & Immunology; ATTEND Allergy & Immunology
PROC: HZ2ZZZZ Detoxification Services for Substance Abuse Treatment (ICD-10-PCS; principal; 2019-12-26)
DX: F10.230 Alcohol dependence with withdrawal, uncomplicated (principal); F17.210 Nicotine dependence, cigarettes, uncomplicated; F14.20 Cocaine dependence, uncomplicated; E78.00 Pure hypercholesterolemia, unspecified; J42 Unspecified chronic bronchitis; I65.22 Occlusion and stenosis of left carotid artery; I25.10 Atherosclerotic heart disease of native coronary artery without angina pectoris; I10 Essential (primary) hypertension; Z98.61 Coronary angioplasty status; I73.9 Peripheral vascular disease, unspecified; M54.5 Low back pain; G89.29 Other chronic pain; Z98.1 Arthrodesis status; Z88.0 Allergy status to penicillin
CPT/HCPCS: 36415; 80053; 85027; 86780; C9803; U0003

== ENCOUNTER 2020-03-25 08:05 | Inpatient (IN) | payer OTHER ==
[2020-03-25 08:42] VITALS: BMI 25.0
[2020-03-25] MEDS ORDERED: MAGNESIUM CITRATE 300 ML BOTTLE PO PRN (09:24)
[2020-03-25] MEDS ORDERED: NICOTINE POLACRILEX 2 MG GUM BUC PRN (09:24)
[2020-03-25] MEDS ORDERED: IBUPROFEN 400 MG TABLET (FP) PO PRN (09:24)
[2020-03-25] MEDS ORDERED: BISMUTH SUBSALICYLATE 262 MG/15 ML BTL PO PRN (09:24)
[2020-03-25] MEDS ORDERED: MAGNESIUM HYDROX 2400MG/30ML ORAL SUSPENSION 30 ML CUP PO PRN (09:24)
[2020-03-25] MEDS ORDERED: chlordiazePOXIDE HCL 25 MG CAPSULE PO PRN (09:24)
[2020-03-25] MEDS ORDERED: ACETAMINOPHEN 325 MG TABLET (FP) PO PRN ×2 (09:24)
[2020-03-25] MEDS ORDERED: METHOCARBAMOL 500 MG TABLET PO PRN (09:24)
[2020-03-25] MEDS ORDERED: MENTHOL/PHENOL 1 EACH UD MM PRN (09:24)
[2020-03-25] MEDS ORDERED: ONDANSETRON *ODT* 4 MG TABLET SL PRN (09:24)
[2020-03-25] MEDS ORDERED: MAG HYDROX/AL HYDROX/SIMETH 30 ML UNIT-DOSE CUP PO PRN (09:24)
[2020-03-25] MEDS ORDERED: ERGOCALCIFEROL (VIT D2) 50,000 UNIT (1.25 MG) CAPSULE PO SCH (10:00)
[2020-03-25] MEDS ORDERED: PATIENT'S OWN MEDICATION (NON-FORMULARY) (Amlodipine Besylate/Benazepril [Amlodipine-Benaz PO SCH (10:00)
[2020-03-25] MEDS: CLOPIDOGREL BISULFATE 75 MG TABLET (FP) PO SCH (10:10)
[2020-03-25] MEDS: ATORVASTATIN CA 20 MG TABLET (FP) PO SCH (10:10)
[2020-03-25] MEDS: PRENATAL VITAMINS W/ FOLIC ACID TABLET (FP) PO SCH (10:10)
[2020-03-25] MEDS: amLODIPine BESYLATE 5 MG TABLET (FP) PO SCH (10:10)
[2020-03-25] MEDS: ASPIRIN COATED 81 MG TABLET.EC PO SCH (10:10)
[2020-03-25] MEDS: LISINOPRIL 10 MG TABLET PO SCH (10:10)
[2020-03-25] MEDS: NICOTINE 14 MG/24 HOURS TOPICAL PATCH TD SCH (10:11)
[2020-03-25] MEDS: chlordiazePOXIDE HCL 25 MG CAPSULE PO SCH ×3 (10:11→22:31)
[2020-03-25] MEDS: hydrOXYzine PAMOATE 25 MG CAPSULE (FP) PO SCH ×4 (10:23→22:31)
[2020-03-25] MEDS: UMECLIDINIUM/VILANTEROL (ANORO) 62.5/25 MCG INHALER IH SCH (11:34)
[2020-03-25] MEDS: CYANOCOBALAMIN 1,000 MCG TABLET (FP) PO SCH (11:34)
[2020-03-25 14:15] LABS: HEMATOCRIT 47.1 % (35.4-49); HEMOGLOBIN 16.1 GM/dL (11.7-16.9); MCH 32.6 pg (25.7-33.7); MCHC 34.2 g/dl (32.0-35.9); MEAN CELL VOLUME 95.5 fl (80-96); MEAN PLT VOLUME 7.4 fl (7.5-11.1); PLATELET COUNT 434 K/MM3 (134-434); RBC 4.93 M/mm3 (4.00-5.60); RDW 14.3 % (11.9-15.9); WHITE BLOOD COUNT 6.3 K/mm3 (4.0-10.0)
[2020-03-25 14:20] LABS: BLOOD UREA NITROGEN 21.3 mg/dL (7-18); CALCIUM 9.5 mg/dL (8.5-10.1)
[2020-03-25 14:21] LABS: ALBUMIN 4.2 g/dl (3.4-5.0)
[2020-03-25 14:24] LABS: CREATININE 0.9 mg/dL (0.55-1.3)
[2020-03-25 14:25] LABS: BILIRUBIN,TOTAL 0.6 mg/dL (0.2-1)
[2020-03-25 14:26] LABS: TOT PROT 8.2 g/dl (6.4-8.2)
[2020-03-25] MEDS ORDERED: MASKS NR ONE (20:17)
[2020-03-25] MEDS ORDERED: THIAMINE HCL 100 MG TABLET (FP) PO SCH (22:00)
[2020-03-25] MEDS ORDERED: MELATONIN 5 MG TABLETS PO SCH (22:00)
[2020-03-26] MEDS: chlordiazePOXIDE HCL 25 MG CAPSULE PO SCH ×2 (06:14→10:41)
[2020-03-26] MEDS: hydrOXYzine PAMOATE 25 MG CAPSULE (FP) PO SCH ×3 (06:14→14:53)
[2020-03-26] MEDS: CYANOCOBALAMIN 1,000 MCG TABLET (FP) PO SCH (10:42)
[2020-03-26] MEDS: LISINOPRIL 10 MG TABLET PO SCH (10:42)
[2020-03-26] MEDS: ASPIRIN COATED 81 MG TABLET.EC PO SCH (10:42)
[2020-03-26] MEDS: amLODIPine BESYLATE 5 MG TABLET (FP) PO SCH (10:42)
[2020-03-26] MEDS: CLOPIDOGREL BISULFATE 75 MG TABLET (FP) PO SCH (10:42)
[2020-03-26] MEDS: NICOTINE 14 MG/24 HOURS TOPICAL PATCH TD SCH (10:43)
[2020-03-26] MEDS: ATORVASTATIN CA 20 MG TABLET (FP) PO SCH (10:43)
[2020-03-26] MEDS: PRENATAL VITAMINS W/ FOLIC ACID TABLET (FP) PO SCH (10:43)
[2020-03-26] MEDS: UMECLIDINIUM/VILANTEROL (ANORO) 62.5/25 MCG INHALER IH SCH (10:43)
[2020-03-26 13:29] VITALS: BP 110/60; PULSE 77; TEMP 98
[2020-03-26] MEDS ORDERED: SUVOREXANT 10 MG TABLET PO PRN (22:00)
[2020-03-27] MEDS ORDERED: chlordiazePOXIDE HCL 25 MG CAPSULE PO SCH (05:00)
[2020-03-28] MEDS ORDERED: chlordiazePOXIDE HCL 10 MG CAPSULE PO PRN
[2020-03-28] MEDS ORDERED: chlordiazePOXIDE HCL 10 MG CAPSULE PO SCH (05:00)
[2020-03-29] MEDS ORDERED: chlordiazePOXIDE HCL 10 MG CAPSULE PO SCH (05:00)
[2020-03-30] MEDS ORDERED: chlordiazePOXIDE HCL 10 MG CAPSULE PO ONE (05:00)
== END 2020-03-26 19:21 | disposition left against medical advice (07) | DRG 770 ==
LOC: YASAS 08:05 → Y6N 09:07
PROVIDERS: ADMIT Allergy & Immunology; ATTEND Allergy & Immunology
PROC: HZ2ZZZZ Detoxification Services for Substance Abuse Treatment (ICD-10-PCS; principal; 2020-03-25)
DX: F10.230 Alcohol dependence with withdrawal, uncomplicated (principal); F14.10 Cocaine abuse, uncomplicated; F17.210 Nicotine dependence, cigarettes, uncomplicated; F10.282 Alcohol dependence with alcohol-induced sleep disorder; F10.24 Alcohol dependence with alcohol-induced mood disorder; F19.24 Other psychoactive substance dependence with psychoactive substance-induced mood disorder; F32.9 Major depressive disorder, single episode, unspecified; I65.22 Occlusion and stenosis of left carotid artery; I10 Essential (primary) hypertension; J41.0 Simple chronic bronchitis; E78.00 Pure hypercholesterolemia, unspecified; M54.5 Low back pain; G89.29 Other chronic pain; R76.11 Nonspecific reaction to tuberculin skin test without active tuberculosis; Z88.0 Allergy status to penicillin; Z91.410 Personal history of adult physical and sexual abuse; Z86.718 Personal history of other venous thrombosis and embolism; Z98.1 Arthrodesis status
CPT/HCPCS: 36415; 80053; 85027; 86780; C9803; U0003

== ENCOUNTER 2022-01-19 12:08 | Emergency (ER) | payer OTHER ==
[2022-01-19 12:24] VITALS: BP 143/74; PULSE 88; RESP 20; TEMP 98; BMI 23.3
[2022-01-19] MEDS ORDERED: LIDOCAINE 5% TOPICAL PATCH TP ONE (12:41)
[2022-01-19] MEDS ORDERED: IBUPROFEN 600 MG TABLET (FP) PO ONE ×2 (12:41→13:31)
[2022-01-19] MEDS ORDERED: diazePAM 2 MG TABLET PO ONE (12:41)
[2022-01-19] MEDS ORDERED: LIDOCAINE 5% TOPICAL PATCH ONE (12:57)
[2022-01-19] MEDS ORDERED: diazePAM 2 MG TABLET ONE (13:31)
[2022-01-19] MEDS ORDERED: LIDOCAINE PATCH REMOVAL MC SCH (22:00)
== END 2022-01-19 14:44 | disposition home or self-care (01) ==
LOC: JER 12:08
DX: M54.42 Lumbago with sciatica, left side (principal)
CPT/HCPCS: 99283-25

== ENCOUNTER 2023-07-06 07:31 | Observation (INO) | payer OTHER ==
[2023-07-06 07:56] VITALS: BMI 25.7
[2023-07-06 08:37] LABS: BASO % 0.8 % (0-2.0); EOS % 1.9 % (0-4.5); HEMATOCRIT 40.4 % (35.4-49); HEMOGLOBIN 13.7 GM/dL (11.7-16.9); LYMPH % 16.2 % (8-40); MCH 31.6 pg (25.7-33.7); MCHC 33.9 g/dl (32.0-35.9); MEAN CELL VOLUME 93.3 fl (80-96); MEAN PLT VOLUME 6.7 fl (7.5-11.1); MONO % 7.1 % (3.8-10.2); PLATELET COUNT 478 10^3/uL (134-434); RBC 4.33 M/mm3 (4.00-5.60); RDW 14.8 % (11.9-15.9); WHITE BLOOD COUNT 10.8 K/mm3 (4.0-10.0)
[2023-07-06 08:44] LABS: INR 0.88 (0.83-1.09)
[2023-07-06 08:47] LABS: ACTIVATED PTT 29.8 SECONDS (25.2-36.5)
[2023-07-06 08:51] LABS: POTASSIUM 4.9 mmol/L (3.5-5.1)
[2023-07-06 08:55] LABS: ALBUMIN 3.3 g/dl (3.4-5.0); BLOOD UREA NITROGEN 16.6 mg/dL (7-18); CALCIUM 9.1 mg/dL (8.5-10.1)
[2023-07-06 08:58] LABS: CREATININE 0.7 mg/dL (0.55-1.3)
[2023-07-06 09:00] LABS: BILIRUBIN,TOTAL 0.3 mg/dL (0.2-1); TOT PROT 7.5 g/dl (6.4-8.2)
[2023-07-06] MEDS ORDERED: ACETAMINOPHEN INJECTION 100 ML IVPB ONE (09:13)
[2023-07-06] MEDS: ACETAMINOPHEN 1000 MG/100 ML BAG IVPB ONE (09:19)
[2023-07-06] MEDS: NITROGLYCERIN 2% OINTMENT - 1GM PACKET TD ONE (10:36)
[2023-07-06 20:36] LABS: METHADONE, UR NEGATIVE (NEGATIVE); PHENCYCLIDINE,URINE NEGATIVE (NEGATIVE); URINE BENZODIAZEPINES NEGATIVE (NEGATIVE)
[2023-07-06 20:37] LABS: COCAINE, UR POSITIVE (NEGATIVE); OPIATES, URI NEGATIVE (NEGATIVE); URINE AMPHETAMINES NEGATIVE (NEGATIVE); URINE BARBITURATES NEGATIVE (NEGATIVE)
[2023-07-06] MEDS: ATORVASTATIN CA 20 MG TABLET (FP) PO SCH (21:13)
[2023-07-06] MEDS: MELATONIN 5 MG TABLETS PO PRN (21:46)
[2023-07-07 08:36] LABS: HEMATOCRIT 49.3 % (35.4-49); HEMOGLOBIN 15.9 GM/dL (11.7-16.9); MCH 30.9 pg (25.7-33.7); MCHC 32.3 g/dl (32.0-35.9); MEAN CELL VOLUME 95.4 fl (80-96); MEAN PLT VOLUME 7.3 fl (7.5-11.1); PLATELET COUNT 283 10^3/uL (134-434); RBC 5.17 M/mm3 (4.00-5.60); RDW 14.4 % (11.9-15.9); WHITE BLOOD COUNT 10.6 K/mm3 (4.0-10.0)
[2023-07-07 08:55] LABS: BLOOD UREA NITROGEN 22.7 mg/dL (7-18); CALCIUM 8.7 mg/dL (8.5-10.1); CREATININE 0.7 mg/dL (0.55-1.3); POTASSIUM 4.9 mmol/L (3.5-5.1)
[2023-07-07] MEDS: LISINOPRIL 10 MG TABLET PO SCH (09:16)
[2023-07-07] MEDS: CLOPIDOGREL BISULFATE 75 MG TABLET (FP) PO SCH (09:16)
[2023-07-07] MEDS: GABAPENTIN 300 MG CAPSULE PO SCH (09:16)
[2023-07-07] MEDS: amLODIPine BESYLATE 5 MG TABLET (FP) PO SCH (09:16)
[2023-07-07] MEDS: ASPIRIN 81 MG CHEWABLE TABLETS PO SCH (09:17)
[2023-07-07] MEDS: ALBUTEROL SO4 HFA INHALER IH SCH (09:18)
[2023-07-07] MEDS ORDERED: PATIENT'S OWN MEDICATION (NON-FORMULARY) (Amlodipine Besylate/Benazepril [Amlodipine-Benaz PO SCH (10:00)
[2023-07-07] MEDS: SODIUM CHLORIDE 250 ML IV ONE (17:31)
[2023-07-07] MEDS: DEXTROSE 5%-0.45% SALINE 1,000 ML IV SCH (18:24)
[2023-07-09 09:36] VITALS: BP 108/69; PULSE 77; RESP 16; TEMP 98.7
== END 2023-07-09 15:18 | disposition home or self-care (01) ==
LOC: JER 07:31 → JERBED 12:28 → UNDOADMOB 12:28 → INTOOBSV 12:28 → JERBED 14:26 → J4W 14:26 → JERBED 17:53
PROVIDERS: ADMIT Internal Medicine; ATTEND Internal Medicine
PROC: 3E033NZ Introduction of Analgesics, Hypnotics, Sedatives into Peripheral Vein, Percutaneous Approach (ICD-10-PCS; principal; 2023-07-06)
DX: R07.9 Chest pain, unspecified (principal); R55 Syncope and collapse; I10 Essential (primary) hypertension; E78.5 Hyperlipidemia, unspecified; Z79.01 Long term (current) use of anticoagulants; I65.29 Occlusion and stenosis of unspecified carotid artery; X58.XXXA Exposure to other specified factors, initial encounter; Y93.89 Activity, other specified; Y92.89 Other specified places as the place of occurrence of the external cause; J44.9 Chronic obstructive pulmonary disease, unspecified; F32.A Depression, unspecified; F14.10 Cocaine abuse, uncomplicated; I25.10 Atherosclerotic heart disease of native coronary artery without angina pectoris; I73.9 Peripheral vascular disease, unspecified; Z72.0 Tobacco use; Z91.199 Patient's noncompliance with other medical treatment and regimen due to unspecified reason; Z88.0 Allergy status to penicillin
CPT/HCPCS: 0241U-QW; 36415; 71046-TC-FY; 71275-TC; 74174-TC; 80048; 80053; 80307; 84443; 84484; 85025; 85027; 85610; 85730; 93005; 93010; 96361; 96374; 99285-25; G0378; J0131; Q9967

== ENCOUNTER 2023-08-13 20:32 | Emergency (ER) | payer OTHER ==
[2023-08-13 21:03] VITALS: BP 118/85; PULSE 91; RESP 20; TEMP 98.2; BMI 22.1
[2023-08-13] MEDS ORDERED: FAMOTIDINE 20 MG/50 ML IVPB 20 MG/50 ML MG IVPB ONE (22:05)
[2023-08-13] MEDS ORDERED: ACETAMINOPHEN INJECTION 100 ML IVPB ONE (22:05)
[2023-08-13 22:21] LABS: EOS % 3.2 % (0-4.5); HEMATOCRIT 41.7 % (35.4-49); HEMOGLOBIN 14.2 GM/dL (11.7-16.9); LYMPH % 36.8 % (8-40); MCH 30.7 pg (25.7-33.7); MCHC 34.1 g/dl (32.0-35.9); MEAN CELL VOLUME 90.1 fl (80-96); MEAN PLT VOLUME 6.4 fl (7.5-11.1); MONO % 7.3 % (3.8-10.2); NEUT % 51.7 % (42.8-82.8); PLATELET COUNT 480 10^3/uL (134-434); RBC 4.63 M/mm3 (4.00-5.60); RDW 14.7 % (11.9-15.9); WHITE BLOOD COUNT 9.9 K/mm3 (4.0-10.0)
[2023-08-13 22:36] LABS: POTASSIUM 4.4 mmol/L (3.5-5.1)
[2023-08-13] MEDS: SODIUM CHLORIDE 0.9% 500 ML INFUS.BAG IV ONE (22:38)
[2023-08-13] MEDS: FAMOTIDINE 20 MG/50 ML IVPB 20 MG/50 ML MG IVPB ONE (22:38)
[2023-08-13] MEDS: ACETAMINOPHEN 1000 MG/100 ML BAG IVPB ONE (22:38)
[2023-08-13 22:39] LABS: ALBUMIN 3.7 g/dl (3.4-5.0); CALCIUM 9.1 mg/dL (8.5-10.1)
[2023-08-13 22:40] LABS: BLOOD UREA NITROGEN 13.4 mg/dL (7-18)
[2023-08-13 22:42] LABS: CREATININE 0.9 mg/dL (0.55-1.3)
[2023-08-13 22:44] LABS: BILIRUBIN,TOTAL 0.3 mg/dL (0.2-1); TOT PROT 7.8 g/dl (6.4-8.2)
== END 2023-08-13 23:34 | disposition home or self-care (01) ==
LOC: JER 20:32
PROC: 3E033GC Introduction of Other Therapeutic Substance into Peripheral Vein, Percutaneous Approach (ICD-10-PCS; principal; 2023-08-13)
PROC: 3E033NZ Introduction of Analgesics, Hypnotics, Sedatives into Peripheral Vein, Percutaneous Approach (ICD-10-PCS; 2023-08-13)
DX: R07.89 Other chest pain (principal); R10.13 Epigastric pain
CPT/HCPCS: 36415; 71046-TC-FY; 80053; 83605; 83690; 84484; 85025; 86850; 86900; 86901; 93005; 93010; 96365; 96375; 99285-25; J0131

== ENCOUNTER 2023-12-28 22:54 | Emergency (ER) | payer OTHER ==
[2023-12-28 23:01] VITALS: BP 142/86; PULSE 95; RESP 20; TEMP 98.1; BMI 21.5
[2023-12-29 01:14] LABS: VENOUS BASE EXCESS -2.6 mmol/L (-2-2); VENOUS O2 SATURATION 90.9 % (70-80); VENOUS PCO2 37.9 mmHg (38-52); VENOUS PH 7.383 (7.310-7.410)
[2023-12-29 01:16] LABS: BASO % 0.8 % (0-2.0); EOS % 1.9 % (0-4.5); HEMATOCRIT 40.5 % (35.4-49); HEMOGLOBIN 13.5 GM/dL (11.7-16.9); MCH 29.1 pg (25.7-33.7); MCHC 33.3 g/dl (32.0-35.9); MEAN CELL VOLUME 87.6 fl (80-96); MEAN PLT VOLUME 7.1 fl (7.5-11.1); MONO % 8.2 % (3.8-10.2); NEUT % 67.1 % (42.8-82.8); PLATELET COUNT 372 10^3/uL (134-434); RBC 4.63 M/mm3 (4.00-5.60); RDW 16.2 % (11.9-15.9); WHITE BLOOD COUNT 9.9 K/mm3 (4.0-10.0)
[2023-12-29] MEDS ORDERED: ALBUTEROL SO4 2.5/IPRATROPIUM 0.5 INH SOL 3 ML VIAL.NEB. NEB ONE (01:20)
[2023-12-29] MEDS ORDERED: ACETAMINOPHEN 325 MG TABLET (FP) ONE (01:21)
[2023-12-29] MEDS ORDERED: LIDOCAINE 4% PATCH TP ONE (01:21)
[2023-12-29] MEDS ORDERED: methylPREDNISolone NA SUCC 125 MG/2 ML VIAL ONE (01:21)
[2023-12-29] MEDS: ACETAMINOPHEN 500 MG TABLET (FP) PO ONE (01:30)
[2023-12-29] MEDS: methylPREDNISolone NA SUCC 125 MG/2 ML VIAL IVPUSH ONE (01:30)
[2023-12-29] MEDS: LIDOCAINE 4% PATCH TP ONE (01:30)
[2023-12-29] MEDS: ALBUTEROL SO4 2.5/IPRATROPIUM 0.5 INH SOL 3 ML VIAL.NEB. NEB ONE (01:30)
[2023-12-29 02:06] LABS: POTASSIUM 4.7 mmol/L (3.5-5.1)
[2023-12-29 02:08] LABS: ALBUMIN 3.8 g/dl (3.4-5.0); CALCIUM 9.6 mg/dL (8.5-10.1)
[2023-12-29 02:11] LABS: CREATININE 0.9 mg/dL (0.55-1.3)
[2023-12-29 02:13] LABS: BILIRUBIN,TOTAL 0.8 mg/dL (0.2-1); TOT PROT 7.8 g/dl (6.4-8.2)
[2023-12-29] MEDS ORDERED: LIDOCAINE PATCH REMOVAL MC SCH (22:00)
== END 2023-12-29 04:59 | disposition home or self-care (01) ==
LOC: JER 22:54
PROC: 3E033GC Introduction of Other Therapeutic Substance into Peripheral Vein, Percutaneous Approach (ICD-10-PCS; principal; 2023-12-29)
PROC: 3E0F7GC Introduction of Other Therapeutic Substance into Respiratory Tract, Via Natural or Artificial Opening (ICD-10-PCS; 2023-12-29)
DX: J44.1 Chronic obstructive pulmonary disease with (acute) exacerbation (principal); R07.9 Chest pain, unspecified; R21 Rash and other nonspecific skin eruption; R06.02 Shortness of breath; Z20.822 Contact with and (suspected) exposure to COVID-19
CPT/HCPCS: 0241U-QW; 36415; 71045-TC-FY; 80053; 82803; 84484; 85025; 93005; 93010; 99285-25

== ENCOUNTER 2024-05-09 18:22 | Inpatient (IN) | payer OTHER ==
[2024-05-09 18:47] VITALS: BMI 25.0
[2024-05-09] MEDS ORDERED: BENZOCAINE/MENTHOL (CHLORASEPTIC ) LOZENGE MM PRN (19:20)
[2024-05-09] MEDS ORDERED: NALOXONE (NARCAN) HCL 4 MG/0.1 ML SPRAY NS PRN (19:20)
[2024-05-09] MEDS ORDERED: P-EPHED 60MG/TRIPROLIDI 2.5MG TABLET PO PRN (19:20)
[2024-05-09] MEDS ORDERED: MAG HYDROX/AL HYDROX/SIMETH 30 ML UNIT-DOSE CUP PO PRN (19:20)
[2024-05-09] MEDS ORDERED: BENZONATATE 200 MG CAPSULE PO PRN (19:20)
[2024-05-09] MEDS ORDERED: NICOTINE POLACRILEX 2 MG LOZENGE BC PRN (19:20)
[2024-05-09] MEDS ORDERED: NICOTINE POLACRILEX 2 MG GUM BUC PRN (19:20)
[2024-05-09] MEDS ORDERED: IBUPROFEN 600 MG TABLET (FP) PO PRN (19:20)
[2024-05-09] MEDS ORDERED: IBUPROFEN 400 MG TABLET (FP) PO PRN (19:20)
[2024-05-09] MEDS ORDERED: POLYETHYLENE GLYCOL (HEALTHYLAX) 3350 17 GM PACKET PO PRN (19:20)
[2024-05-09] MEDS ORDERED: guaiFENesin 600 MG TABLET.ER (FP) PO PRN (19:20)
[2024-05-09] MEDS ORDERED: LOPERAMIDE HCL 2 MG CAPSULE PO PRN (19:20)
[2024-05-09] MEDS ORDERED: MAGNESIUM HYDROX 2400MG/30ML ORAL SUSPENSION 30 ML CUP PO PRN (19:20)
[2024-05-09] MEDS ORDERED: TUBERCULIN PPD 5 TU/0.1ML VIAL ID ONE (22:02)
[2024-05-09] MEDS: MELATONIN 5 MG TABLETS PO SCH (22:12)
[2024-05-09] MEDS: THIAMINE 100 MG TABLET PO SCH (22:12)
[2024-05-09] MEDS ORDERED: ALBUTEROL SO4 HFA INHALER IH PRN (23:07)
[2024-05-09] MEDS ORDERED: TUBERCULIN PPD 5 TU/0.1ML SYRINGE (IN PATIENT USE ONLY) ID ONE (23:21)
[2024-05-10] MEDS: NICOTINE 7 MG/24 HOURS TOPICAL PATCH TD SCH (09:34)
[2024-05-10] MEDS: ASPIRIN 81 MG CHEWABLE TABLETS PO SCH (09:34)
[2024-05-10] MEDS: PRENATAL VITAMINS W/ FOLIC ACID TABLET (FP) PO SCH (09:34)
[2024-05-10] MEDS: CLOPIDOGREL BISULFATE 75 MG TABLET (FP) PO SCH (09:34)
[2024-05-10 11:17] LABS: HEMATOCRIT 41.1 % (40.1-51.0); HEMOGLOBIN 12.7 g/dL (13.7-17.5); MCHC 30.9 g/dl (32.3-36.5); MEAN CELL VOLUME 90.5 fl (79.0-92.2); MEAN PLT VOLUME 9.9 fl (9.4-12.4); PLATELET COUNT 377 x10^3/uL (163-337); RDW 17.2 % (12.2-16.4)
[2024-05-10 11:27] LABS: CHLORIDE 106 mmol/L (98-107); POTASSIUM 4.4 mmol/L (3.5-5.1); SODIUM 139 mmol/L (136-145)
[2024-05-10 11:39] LABS: SGPT/ALT 20 U/L (13-61)
[2024-05-10 12:18] LABS: CALCIUM 9.1 mg/dL (8.5-10.1)
[2024-05-10 12:19] LABS: ALBUMIN 3.4 g/dl (3.4-5.0); ANION GAP 9 mmol/L (4-13); CO2 24 mmol/L (21-32); CREATININE 0.6 mg/dL (0.55-1.3); GLUCOSE,RANDOM 82 mg/dL (74-106)
[2024-05-10 12:20] LABS: BILIRUBIN,TOTAL 0.3 mg/dL (0.2-1)
[2024-05-10 12:21] LABS: TOT PROT 6.5 g/dl (6.4-8.2)
[2024-05-10 12:22] LABS: ALK PHOS 90 U/L (45-117)
[2024-05-10 12:24] LABS: SGOT/AST 18 U/L (15-37)
[2024-05-10] MEDS: ACETAMINOPHEN 325 MG TABLET (FP) PO PRN (16:53)
[2024-05-10] MEDS: traZODone HCL 50 MG TABLET (FP) PO SCH (21:10)
[2024-05-10] MEDS: ATORVASTATIN CA 20 MG TABLET (FP) PO SCH (21:10)
[2024-05-10] MEDS: SUVOREXANT 10 MG TABLET PO PRN (21:11)
[2024-05-10] MEDS: LIDOCAINE 4% PATCH TP SCH (21:11)
[2024-05-10] MEDS: LIDOCAINE PATCH REMOVAL MC SCH (23:42)
[2024-05-12] MEDS: MELATONIN 5 MG TABLETS PO SCH (21:04)
[2024-05-12] MEDS: SUVOREXANT 10 MG TABLET PO PRN (21:05)
[2024-05-13] MEDS: SUVOREXANT 15 MG TABLET PO PRN (21:24)
[2024-05-14 21:40] VITALS: BP 145/90; PULSE 80; RESP 18; TEMP 97.8
[2024-05-15] MEDS ORDERED: SUVOREXANT 15 MG TABLET PO PRN (22:00)
== END 2024-05-15 16:10 | disposition left against medical advice (07) | DRG 772 ==
LOC: YASAS 18:22 → Y3W 21:13
PROVIDERS: ADMIT Psychiatry & Neurology Pain Medicine; ATTEND Psychiatry & Neurology Pain Medicine
PROC: HZ42ZZZ Group Counseling for Substance Abuse Treatment, Cognitive-Behavioral (ICD-10-PCS; principal; 2024-05-09)
DX: F10.20 Alcohol dependence, uncomplicated (principal); F17.210 Nicotine dependence, cigarettes, uncomplicated; F10.282 Alcohol dependence with alcohol-induced sleep disorder; F32.A Depression, unspecified; I65.22 Occlusion and stenosis of left carotid artery; I25.10 Atherosclerotic heart disease of native coronary artery without angina pectoris; I10 Essential (primary) hypertension; I73.9 Peripheral vascular disease, unspecified; E78.00 Pure hypercholesterolemia, unspecified; J44.9 Chronic obstructive pulmonary disease, unspecified; M54.42 Lumbago with sciatica, left side; G89.29 Other chronic pain; Z86.11 Personal history of tuberculosis; F91.8 Other conduct disorders; Z91.199 Patient's noncompliance with other medical treatment and regimen due to unspecified reason; Z88.0 Allergy status to penicillin; Z59.01 Sheltered homelessness; S90.111A Contusion of right great toe without damage to nail, initial encounter; W22.8XXA Striking against or struck by other objects, initial encounter; Y92.238 Other place in hospital as the place of occurrence of the external cause
CPT/HCPCS: 36415; 80053; 80305; 80307; 85027; 86780; 87811; 93005; 93010

== ENCOUNTER 2024-07-24 06:24 | Emergency (ER) | payer OTHER ==
[2024-07-24 06:28] VITALS: BMI 24.5
[2024-07-24] MEDS ORDERED: LORazepam 2 MG/ML SDV VIAL ONE (07:54)
[2024-07-24] MEDS ORDERED: MAG HYDROX/AL HYDROX/SIMETH 30 ML UNIT-DOSE CUP ONE (07:55)
[2024-07-24] MEDS ORDERED: FAMOTIDINE 20 MG/50 ML IVPB 20 MG/50 ML MG IVPB ONE (07:55)
[2024-07-24 07:56] LABS: VENOUS BASE EXCESS -2.4 mmol/L (-2-2); VENOUS O2 SATURATION 48.6 % (70-80); VENOUS PCO2 51.1 mmHg (38-52); VENOUS PH 7.303 (7.310-7.410)
[2024-07-24] MEDS: FAMOTIDINE 20 MG/50 ML IVPB 20 MG/50 ML MG IVPB ONE (08:03)
[2024-07-24] MEDS: MAG HYDROX/AL HYDROX/SIMETH 30 ML UNIT-DOSE CUP PO ONE (08:03)
[2024-07-24 08:05] LABS: ABSOLUTE IMMATURE GRANULOCYTES 0.09 x10^3/uL (0.0-0.031); BASOPHILS # 0.09 x10^3/uL (0.01-0.08); EOSINOPHIL % 0.6 % (0.8-7.0); EOSINOPHILS # 0.09 x10^3/uL (0.04-0.54); HEMATOCRIT 47.8 % (40.1-51.0); HEMOGLOBIN 15.3 g/dL (13.7-17.5); MEAN CELL VOLUME 87.4 fl (79.0-92.2); MEAN PLT VOLUME 8.9 fl (9.4-12.4); PLATELET COUNT 358 x10^3/uL (163-337); RDW 15.3 % (12.2-16.4)
[2024-07-24 08:21] LABS: POTASSIUM 5.2 mmol/L (3.5-5.1)
[2024-07-24 08:25] LABS: ALBUMIN 4.4 g/dl (3.4-5.0); BLOOD UREA NITROGEN 24.4 mg/dL (7-18); CALCIUM 10.2 mg/dL (8.5-10.1); MAGNESIUM 2.7 mg/dL (1.8-2.4)
[2024-07-24 08:28] LABS: PHOSPHOROUS 4.8 mg/dL (2.5-4.9)
[2024-07-24 08:29] LABS: BILIRUBIN,TOTAL 0.6 mg/dL (0.2-1)
[2024-07-24 08:30] LABS: TOT PROT 8.1 g/dl (6.4-8.2)
[2024-07-24 08:37] VITALS: TEMP 98.6
[2024-07-24] MEDS: IBUPROFEN 400 MG TABLET (FP) PO ONE (08:56)
[2024-07-24] MEDS ORDERED: IBUPROFEN 400 MG TABLET (FP) PO ONE (08:57)
[2024-07-24 12:00] VITALS: BP 138/82; PULSE 94; RESP 20
== END 2024-07-24 11:58 | disposition home or self-care (01) ==
LOC: JER 06:24
PROC: 3E033GC Introduction of Other Therapeutic Substance into Peripheral Vein, Percutaneous Approach (ICD-10-PCS; principal; 2024-07-24)
PROC: 3E033GC Introduction of Other Therapeutic Substance into Peripheral Vein, Percutaneous Approach (ICD-10-PCS; 2024-07-24)
DX: F14.129 Cocaine abuse with intoxication, unspecified (principal); F10.939 Alcohol use, unspecified with withdrawal, unspecified; R07.89 Other chest pain; R06.02 Shortness of breath; H53.8 Other visual disturbances; R10.13 Epigastric pain; R00.0 Tachycardia, unspecified; R11.10 Vomiting, unspecified; M79.89 Other specified soft tissue disorders
CPT/HCPCS: 36415; 70450-TC; 71046-TC-FY; 80053; 82803; 83690; 83735; 84100; 84484; 85025; 93005; 93010; 99285-25

== ENCOUNTER 2024-12-01 08:56 | Inpatient (IN) | payer OTHER ==
[2024-12-01 09:19] VITALS: BMI 25.4
[2024-12-01] MEDS ORDERED: BENZOCAINE/MENTHOL (CHLORASEPTIC ) LOZENGE MM PRN (10:17)
[2024-12-01] MEDS ORDERED: DICYCLOMINE HCL 10 MG CAPSULE PO PRN (10:17)
[2024-12-01] MEDS ORDERED: MAG HYDROX/AL HYDROX/SIMETH 30 ML UNIT-DOSE CUP PO PRN (10:17)
[2024-12-01] MEDS ORDERED: NALOXONE (NARCAN) HCL 4 MG/0.1 ML SPRAY NS PRN (10:17)
[2024-12-01] MEDS ORDERED: IBUPROFEN 400 MG TABLET (FP) PO PRN (10:17)
[2024-12-01] MEDS ORDERED: IBUPROFEN 600 MG TABLET (FP) PO PRN (10:17)
[2024-12-01] MEDS ORDERED: ACETAMINOPHEN 325 MG TABLET (FP) PO PRN (10:17)
[2024-12-01] MEDS ORDERED: BISMUTH SUBSALICYLATE 524 MG/30 ML PO PRN (10:17)
[2024-12-01] MEDS ORDERED: POLYETHYLENE GLYCOL (HEALTHYLAX) 3350 17 GM PACKET PO PRN (10:17)
[2024-12-01] MEDS ORDERED: ONDANSETRON *ODT* 4 MG TABLET SL PRN (10:17)
[2024-12-01] MEDS ORDERED: BENZONATATE 200 MG CAPSULE PO PRN (10:17)
[2024-12-01] MEDS ORDERED: LOPERAMIDE HCL 2 MG CAPSULE PO PRN (10:17)
[2024-12-01] MEDS ORDERED: guaiFENesin 600 MG TABLET.ER (FP) PO PRN (10:17)
[2024-12-01] MEDS ORDERED: ALBUTEROL SO4 HFA INHALER IH PRN (10:20)
[2024-12-01] MEDS: NICOTINE 14 MG/24 HOURS TOPICAL PATCH TD SCH (11:35)
[2024-12-01] MEDS: amLODIPine BESYLATE 5 MG TABLET (FP) PO SCH (11:35)
[2024-12-01] MEDS: NALTREXONE HCL 50 MG TABLET PO ONE (11:35)
[2024-12-01] MEDS: FLU VACC TS2025-26(6MOS UP)/PF 45 MCG/0.5 ML SYRINGE IM ONE (13:06)
[2024-12-01] MEDS: MAGNESIUM HYDROX 2400MG/30ML ORAL SUSPENSION 30 ML CUP PO PRN (19:16)
[2024-12-01] MEDS: LIDOCAINE 5% TOPICAL PATCH TP SCH (20:36)
[2024-12-01] MEDS: THIAMINE 100 MG TABLET PO SCH (21:46)
[2024-12-01] MEDS: MELATONIN 5 MG TABLETS PO SCH (21:46)
[2024-12-01] MEDS: ATORVASTATIN CA 40 MG TABLET (FP) PO SCH (21:48)
[2024-12-01] MEDS: traZODone HCL 100 MG TABLET (FP) PO SCH (21:48)
[2024-12-02] MEDS: LIDOCAINE PATCH REMOVAL MC SCH (07:20)
[2024-12-02] MEDS: ASPIRIN 81 MG CHEWABLE TABLETS PO SCH (10:11)
[2024-12-02] MEDS: CLOPIDOGREL BISULFATE 75 MG TABLET (FP) PO SCH (10:11)
[2024-12-02] MEDS: PANTOPRAZOLE 40 MG TABLET PO SCH (10:11)
[2024-12-02] MEDS: NALTREXONE HCL 50 MG TABLET PO SCH (10:11)
[2024-12-02] MEDS: PRENATAL VITAMINS W/ FOLIC ACID TABLET (FP) PO SCH (10:14)
[2024-12-02] MEDS: PNEUMOC 20-VAL CONJ-DIP CRM/PF 0.5 ML SYRINGE IM ONE (12:04)
[2024-12-02 12:36] LABS: MCHC 32.0 g/dl (32.3-36.5); MEAN CELL VOLUME 94.1 fl (79.0-92.2); MEAN PLT VOLUME 10.5 fl (9.4-12.4); RDW 15.5 % (12.2-16.4)
[2024-12-02 13:20] LABS: GLUCOSE,RANDOM 146.0 mg/dL (74-106)
[2024-12-02 13:21] LABS: TOT PROT 7.7 g/dl (6.4-8.2)
[2024-12-02 13:22] LABS: CO2 25.0 mmol/L (21-32)
[2024-12-02 13:23] LABS: ALK PHOS 108.0 U/L (40-150)
[2024-12-02 13:26] LABS: CREATININE 0.88 mg/dL (0.55-1.3); SGOT/AST 241.0 U/L (5-34); SGPT/ALT 288.0 U/L (0-55)
[2024-12-04] MEDS: METHOCARBAMOL 500 MG TABLET PO PRN (21:23)
[2024-12-04] MEDS: hydrOXYzine PAMOATE 25 MG CAPSULE (FP) PO PRN (21:23)
[2024-12-06 08:59] VITALS: BP 124/80; PULSE 69; RESP 17; TEMP 98.3
== END 2024-12-06 10:16 | disposition home or self-care (01) | DRG 774 ==
LOC: SUATTDRO 08:56 → YASAS 08:56 → Y3N 11:01
PROVIDERS: ADMIT Allergy & Immunology; ATTEND Family Medicine
PROC: HZ2ZZZZ Detoxification Services for Substance Abuse Treatment (ICD-10-PCS; principal; 2024-12-01)
DX: F10.230 Alcohol dependence with withdrawal, uncomplicated (principal); F14.20 Cocaine dependence, uncomplicated; F17.210 Nicotine dependence, cigarettes, uncomplicated; F10.282 Alcohol dependence with alcohol-induced sleep disorder; F10.24 Alcohol dependence with alcohol-induced mood disorder; I25.10 Atherosclerotic heart disease of native coronary artery without angina pectoris; I10 Essential (primary) hypertension; J41.0 Simple chronic bronchitis
CPT/HCPCS: 36415; 80053; 80307; 85027; 86780; 90656; 93005; 93010